=== PATIENT | male | born 1980 | race Caucasian/White ===

== ENCOUNTER 2025-07-10 09:26 | Outpatient (CLI) | payer BC, SELFPAY ==
--- OUTSIDE RECORDS SUMMARY | 2025-05-23 07:18 | XMS_ITS | Encounter Summary ---
Author Organization [place] [address] Care Team Providers Care Storekeeper Helper Name Role Phone No Pcp, Per Patient Primary Care Provider Unavai lable Reason for Referral * Holter Monitor (Routine) - Pending Review Specialty Diagnoses / Procedures Referred By Cleve casas Referred To Contact Radiology Diagnoses Syncope and collapse Procedures EV EVENT MONITOR Ashley Perez MD [address] [place] [address] Phone: tel: fax: Referral ID Status Reason Start Date Expiration Date V isits Requested Visits Authorized [id number] Pending Review 05/24/2025 05/24/2027 1 1 Reason for Visit * Reason Comments Chest Pain Pt sts he has been h aving chest pain since Tuesday. He went to see MD yesterday and she wanted him to come in by ambulance but he refused. + SOB. Pt sts that Tuesday he had episode of sweating and passed out. CPTA: none * Auth/Cert/Inpt (Routine) Specialty Diagnoses / Procedures Referred By Cleve casas Referred To Contact Diagnoses Syncope and collapse Referral ID Status Reason Start Date Expiration Date Visits Re quested Visits Authorized [id number] 1 1 Encounter Details Date Type Department Care Team (Latest Contact Info) Description 05/23/2025 7:18 AM EDT - 05/24/2025 3:27 PM EDT Hospital Encounter EDG 2A OBSERVATION [facility]IT [facility] [place] [address] Pranav Theodore MD [address] [place] [address] Ashley Perez MD [id number] [facility] [place] [id number] Syncope and collapse (Primary Dx); Chest pain, unspecified type Discharge Disposition: Home or Self Care Social History Tobacco Use Types Packs/Day Years Used Date Smoking Tobacco: Never Smokeless Tobacco: Never Alcohol Use Standard Drinks/Week Comments Not Currently 0 (1 standard drink = 0.6 oz pur e alcohol) 12 beers a week [facility] Utilities Answer Date Recorded In the past 12 months has th e electric, gas, oil, or water company threatened to shut off services in your home? No 05/23/2025 Overall Financial Resource Strain (CARDIA) Answe r Date Recorded How hard is it for you to pa y for the very basics like food, housing, medical care, and heating? Not hard at all 05/23/2025 PHQ-2 Answer Date Recorded PHQ-2 Total Score 0 05/23/2025 [facility] - Occupational Stress Questionnaire Answer Date Recorded Do you feel stress - tense, restless, nervous, or anxious, or unable to sleep at night because your mind is troubled all the time - these days? Not at all 05/23/2025 Exercise Vital Sign Answer Date Recorde d On average, how many days pe r week do you engage in moderate to strenuous exercise (like a brisk walk)? 0 days 05/23/2025 On average, how many minutes do you engage in exercise at this level? 0 min 05/23/2025 Hunger Vital Sign Answer Date Recorded Within the past 12 months, y ou worried that your food would run out before you got the money to buy more. Never true 05/23/20 25 Within the past 12 months, t he food you bought just didn't last and you didn't have money to get more. Never true 05/23/2025 [facility] IP Transportation Answer D ate Recorded In the past 12 months, has l ack of reliable transportation kept you from medical appointments, meetings, work or from getting things needed for daily living? No 05/23/2025 Sex and Gender Information Value Date Recorded Sex Assigned at Not on file Legal Sex Male 12:28 AM EDT Gender Identity Not on file Sexual Orientation Not on file documented as of this encounter Last Filed Vital Signs Vital Sign Reading Time Taken Comments Blood Pressure 123/81 05/24/2025 12:11 PM EDT Pulse 65 05/24/2025 1:01 PM EDT Temperature 37.6 C (99.6 F) 05/24/2025 12:11 PM EDT Respiratory Rate 18 05/24/2025 12:11 PM EDT Oxygen Saturation 96% 05/24/2025 12:11 PM EDT Inhaled Oxygen Concentration - - Weight 83 kg (183 lb) 05/24/2025 5:47 AM EDT Height 185.4 cm (6' 1 ) 05/23/2025 2:54 PM EDT Body Mass Index 24.14 05/23/2025 2:54 PM EDT documented in this encounter Functional Status * Alcohol Screening Score Answer Date of Assessment Author 3 05/23/2025 1:00 PM EDT Jeet Caceres RN * Drug Screening Score Answer Date of Assessment Author 0 05/23/2025 1:00 PM EDT Jeet Caceres RN * Question Answer Date of Assessment Author How often do you have a drin k containing alcohol? 3 05/23/2025 1:00 PM EDT Delia Caceres RN How many drinks containing a lcohol do you have on a typical day when you are drinking? 0 05/23/2025 1:00 PM EDT Delia Caceres RN How often do you have six or more drinks on one occasion? 0 05/23/2025 1:00 PM EDT Harry Caceres RN AUDIT-C to Determine Rows 4-10 0 05/23/2025 1:00 PM EDT Delia Caceres RN * Question Answer Date of Assessment Author Little interest or pleasure in doing things 0 05/23/2025 2:32 PM EDT Margaux Montoya RN Feeling down, depressed, or hopeless 0 05/23/2025 2:32 PM EDT Margaux Montoya RN PHQ-2 Total Score 0 05/23/2025 2:32 PM EDT Margaux Montoya RN * PHQ-9 Total Score Answer Date of Assessment Author 0 05/23/2025 2:32 PM EDT Margaux Montoya RN * PHQ-2 Total Score Answer Date of Assessment Author 0 05/23/2025 2:32 PM EDT Margaux Montoya RN * Suicide Severity Rating Answer Date of Assessment Author No Risk 05/23/2025 7:31 AM EDT Barbara Estes RN * Bishop Suicide Severity Rating Scale (Q shift for moderate and high) Question Answer Date of Assessment Author 1. In the past month, have you wished you were or wished you could go to sleep and not wake up? 0 05/23/2025 7:31 AM EDT Barbara Miranda RN 2. In the past month, have you actually had any thoughts of killing yourself? (If no, skip to question 6) 0 05/23/2025 7:31 AM EDT Barbara Miranda RN 6. Have you ever done anything, started to do anything, or prepared to do anything to end your life? 0 05/23/2025 7:31 AM EDT Barbara Stiles RN documented as of this encounter Discharge Summaries * Ashley Perez MD - 05/24/2025 9:16 AM EDT Hospital Medicine Discharge Summary Patient ID: Darrell Sorto Patient's PCP: No Pcp, Per Patient Admit Date: 05/23/2025 Discharge Date: 05/24/2025 Admitting Physician: Ashley Perez MD Discharge Physician: Ashley Perez MD Labs and imaging follow-up needed: Outpatient follow-up for event monitor The patient was seen and examined on day of discharge and this discharge summary is in conjunction with any daily progress note from day of discharge. Reason for Hospitalization: Active Hospital Problems *Syncope and collapse Other chest pain Shortness of breath Primary hypertension Pure hypercholesterolemia Hospital Course: Patient is a 45-year-old male with a past medical history of shortness of breath, hypertension and hyperlipidemia who presents the hospital with syncope and collapse along with some chest pain and shortness of breath. Cardiology was consulted in the emergency department and CT coronary was performed and failed to show any acute blockages. Echocardiogram was ordered and showed EF 55-60%, mild mitral and tricuspid regurg. Patient will discharge home with event monitor. Exam: BP 120/63 (BP Location: Right arm, Patient Position: Semi Fowlers) Pulse 61 Temp 97.8 ??F (36.6??C) (Forehead) Resp 16 Ht 6' 1 (1.854 m) Wt 183 lb (83 kg) SpO2 96% BMI 24.14 kg/m?? Physical Exam Vitals and nursing note reviewed. HENT: Head: Normocephalic. Nose: Nose normal. Eyes: Pupils: Pupils are equal, round, and reactive to light. Cardiovascular: Rate and Rhythm: Normal rate. Pulmonary: Effort: Pulmonary effort is normal. Abdominal: Palpations: Abdomen is soft. Neurological: Mental Status: He is alert. Consults: Treatment Team: Consulting Physician: Ortiz Mkceon MD Significant Diagnostic Studies: EK EKG [address] [facility] [place] [facility] Test Date: 2025-05-23 Pat Name: DARRELL SORTO Department: DEPID Room: 210 Gender: Male Parker: Dangelo : 1980 Requested By: ASHLEY Zhang Order Number: [id number] Reading MD: Uday Lares MD Measurements Intervals [place] Rate: 59 P: 25 NH: 131 QRS: 38 QRSD: 98 T: 53 QT: 405 QTc: 402 Interpretive Statements Normal Sinus Rhythm LVH Electronically Signed On 05-24-2025 07:58:31 EDT by Uday Lares MD CT ANGIOGRAM CORONARY W CONTRAST Final Result Vessel-specific details above. CAD-RADS CLASSIFICATION: CAD-RADS 0. No demonstrated plaque or stenosis. CAD-RADS MODIFIERS: No relevant modifier. CAD-RADS (Coronary Artery Disease-Reporting and Data System) is endorsed by the [place] College of [employer]iology. CAD-RADS grading is applied to vessels 1.5mm diameter and greater only. Link to source document. https://cdn.[employer].com/scct.org/resource/resmgr/cad-rads/scct_jcct_cad-rads.pdf - Note: Radiology results need to be interpreted within a comprehensive clinical context. If you have questions about the radiology report, please contact the office of the ordering clinician. CT ANGIOGRAM PULMONARY W CONTRAST Final Result No acute pulmonary embolism or other acute finding. - Note: Radiology results need to be interpreted within a comprehensive clinical context. If you have questions about the radiology report, please contact the office of the ordering clinician. XR CHEST AP PORTABLE Final Result No acute finding. - Note: Radiology results need to be interpreted within a comprehensive clinical context. If you have questions about the radiology report, please contact the office of the ordering clinician. EK EKG [address] [facility] [place] Test Date: 2025-05-23 Pat Name: DARRELL SORTO Department: DEPID Room: 41 Gender: Male Parker: : 1980 Requested By: [facility] Order Number: [id number] Reading MD: Uday Lares MD Measurements Intervals [place] Rate: 58 P: 13 NH: 131 QRS: 38 QRSD: 100 T: 54 QT: 417 QTc: 410 Interpretive Statements SINUS BRADYCARDIA VOLTAGE CRITERIA FOR LVH Electronically Signed On 05-23-2025 08:31:39 EDT by Uday Lares MD EC ECHOCARDIOGRAM COMPLETE W DOPPLER AND COLOR FLOW MAPPING (Results Pending) Disposition: Home Condition at Discharge: Stable Code Status: Full Code Activity: activity as tolerated Diet: regular diet Discharge Medications: Medication List ASK your doctor about these medications cyclobenzaprine 10 mg Tab Dose: 5 mg Qty: 7 Tab Refills: 0 Commonly known as: FLEXERIL 5 mg, Oral, 3 TIMES DAILY PRN diclofenac sodium 50 mg [place] Dose: 50 mg Qty: 90 Tab Refills: 2 Commonly known as: VOLTAREN 50 mg, Oral, 3 TIMES DAILY WITH MEALS naproxen 500 mg Tab Dose: 500 mg Qty: 14 Tab Refills: 0 Commonly known as: NAPROSYN 500 mg, Oral, EVERY 12 HOURS PRN No future appointments. Time Spent on discharge is more than 30 minutes in the examination, evaluation, counseling and review of medications and discharge plan. Signed: Ashley Perez MD 05/24/2025 documented in this encounter Discharge Disposition Disposition Code Departure Means Destination Comment s Home or Self Care Walk-out Home documented in this encounter Progress Notes * Uday Lares MD - 05/24/2025 9:57 AM EDT Heart & Vascular Progress Note PATIENT: Darrell Curran Cardiology following for: chest pain, syncope Primary Examining Chair Assembler: none Subjective: Patient denies any CP or SOB. Has been up in room. Denies lightheadedness, dizziness. Objective: Vitals: 05/24/25 0919 BP: 121/79 Pulse: 57 Resp: 16 Temp: 97.2 ??F (36.2 ??C) SpO2: 99% I/O 24 hours: Intake/Output Summary (Last 24 hours) at 05/24/2025 0957 Last data filed at 05/24/2025 0557 Gross per 24 hour Intake 600 ml Output -- Net 600 ml Physical Exam: Pt in no distress. Heart - S1, S2 regular rate/rhythm Lungs - clear Chest wall - nontender Abd - soft, NT Extremities- no edema, Neuro - Alert and oriented Mood and affect appropriate Medication: pantoprazole (PROTONIX) 40 mg Intravenous Daily Or pantoprazole 40 mg Oral Daily Labs & Studies: All pertinent labs & radiologic studies for the past 24 hours have been reviewed Telemetry: SR/SB Assessment: CP -hsTn <6 x2 -EKG no acute ischemic finding -CTA pulm with no PE or other acute finding -CCTA with normal coronary arteries Syncope -telemetry reviewed-sinus rhythm and sinus magnus, no high grade blocks, pauses or vent arrhythmias to explain syncope -echo with normal EF and no significant valve disease HTN -BP is controlled -no meds for HTN currently PLAN Await echo. Likely home later today with 30 day EM Further input from Dr Lares . Gabbie Coughlin APRN, Heart and Vascular 05/24/2025 Disposition Perspective - Medically Ready for Discharge: No Anticipated Discharge: possibly later today Discharge when / if: pending echo Seen in follow up CP --No objective ischemica Syncope HTN Echo Result Text IMPRESSION Conclusions * Left ventricular chamber dimension is normal. * Left ventricular function is normal with an estimated ejection fraction of 55-60%. * Left ventricular segmental wall motion is normal. * Right ventricular systolic function is normal. * There is mild mitral valve regurgitation. * There is mild tricuspid valve regurgitation. * Estimated pulmonary artery systolic pressure is 25 mmHg. Cor CTA normal Cors No PE Normal Echo OK to DC home with 20 Day EM Thank you for allowing me to participate in the care of your patients. Please call with any concerns or questions Uday Lares MD [facility] * Marla Cheema MD - 05/23/2025 10:01 PM EDT EKG Interpretation Interpreted by Marla Cheema MD Diagnostic Findings: Intervals reviewed Rhythm: sinus bradycardia Rate: 60 [place]: normal Ectopy: none Conduction: normal ST Segments: no acute change T Waves: no acute change Q Waves: none Clinical Impression: no acute changes Marla Cheema MD Cosigned by Rory Hamilton MD at 05/24/2025 12:22 PM EDT Associated attestation - Rory Hamilton MD - 05/24/2025 12:22 PM EDT I agree with resident physician/house physician management of this situation. I defer to the patient's attending physician for further management of this patient. * Carolina Nuno RN - 05/23/2025 9:56 PM EDT Pt called out with episode of chest pain and left arm pain. VSS. STAT 12 lead EKG completed per protocol. Message sent to ENVIRONMENTAL STUDIES PROFESSOR covering for primary and to residents to read EKG. 05/23/2025 9:58 PM EKG read by residents with no changes. Message also sent to cardiology ENVIRONMENTAL STUDIES PROFESSOR to update. 05/23/2025 10:05 PM No additional episodes of CP overnight. Pt is refusing AM lab draw. 05/24/2025 5:42 AM * Margaux Montoya RN - 05/23/2025 2:38 PM EDT 05/23/25 1433 Discharge Planning Evaluation Completed by CC/SW Yes Echo required prior to discharge? Yes Who you interviewed In person interview with patient Mental Status Alert and oriented Decision Maker Patient Who does pt identify as their caregiver/support person who will be their active partner in the dc planning process Pt identified caregiver/support person for dc planning and requested they not be called Does patient need medical interpreter? No Activities of Daily Living Prior to Admission Independent with ADLS;Independent with Homemaking;Independent with mobility DME Used at Home None Patient's Living Arrangments Prior to Admission? Private Residence Alone Support Systems Family Members Is PCP listed on facesheet correct? No Who does patient report as PCP? Mariana Kumar with [facility] Quality of Support System Good APS/CPS Report Made No Anticipated post-acute care needs Home with OP Follow Up Discussed discharge plans with Patient/Family/Caregiver/Support Person Yes, Discussed with patient and caregiver/support person Discussed discharge plans with Care Team at [place] Yes, with doctor in attendance;Yes, with nurse in attendance Patient's goals for recovery Return to Prior Level of Functioning Actual Discharge Plan 05/23/25-CC INITIAL/FINAL: Chart reviewed. Pt admitted for syncope and collapse, noted echo ordered. Met with pt and family at bedside. Pt is alert and oriented. Pt states he lives alone in a private residence. 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 Denies having or needing HH/DME. PCP: Mariana Kumar with [facility] in [place], [place] Rx: [facility] DMD: Yes. Pt denies any financial concerns for food, medication, or transportation. No d/c needs verbalized or identified. Pt states family will provide transportation at time of d/c. CC available but will sign off. Final Note Referral to SEP Care Management (SEP patients only) N/A Discharge Round Completed Yes Post Acute Form Assign to DC Tech No Post Acute Form Completed No Care Coordination Discharge Ready? Yes Discharge to Home with Support Post Acute Provider Mariana Kumar with [facility] DME at Discharge None DME Assign to DC Tech No DME completed by DC Neofect No Transportation at Discharge Personal vehicle Date Expected 05/24/25 Transportation Assign to DC Tech No Confirmed Discharge Transportation Plan? Yes Transportation setup completed by [email or web address] No PASAR Completed Not Applicable Patient Aware and Agrees with DC Plan Yes Primary Caregiver/Legal Decision Maker aware and agree with Discharge Plan Yes Name of Family member notified family at bedside for d/c plan Does family and/or caregiver verbalize readiness, willingness, and ability to provide or support patient's self-management activities as appropriate? Yes, patient's primary caregiver reports no concerns regarding discharge plan MD Aware of Plan Yes RN Notified of Plan Yes * Ashley Perez MD - 05/23/2025 1:34 PM EDTAssociated Problem(s): Syncope and collapse Recurrent nature Echocardiogram ordered Cardiology consulted Continue telemetry * Ashley Perez MD - 05/23/2025 1:34 PM EDTAssociated Problem(s): Other chest pain Troponins negative CT coronary along with echocardiogram ordered Cardiology consulted * Ashley Perez MD - 05/23/2025 1:34 PM EDTAssociated Problem(s): Shortness of breath Chest x-ray with no acute issue CTPA with no acute pulmonary embolism * Ashley Perez MD - 05/23/2025 1:34 PM EDTAssociated Problem(s): Primary hypertension EKG with voltage criteria for LVH Blood pressure as high as 152/98 Monitor and may need to start medication in outpatient * Ashley Perez MD - 05/23/2025 1:34 PM EDTAssociated Problem(s): Pure hypercholesterolemia LDL slightly elevated at 109 Defer management to cardiology documented in this encounter H&P Notes * Ashley Perez MD - 05/23/2025 1:29 PM EDT Images from the original note were not included. Hospital Medicine History & Physical PCP: No Pcp, Per Patient Date of Admission: 05/23/2025 Date of Service: Pt seen/examined on 05/23/25 and Placed in Observation. Chief Complaint: Shortness of breath and chest pain Admission Diagnosis: Syncope and collapse History Of Present Illness: The patient is a 45 y.o. male who presents to [facility] with shortness of breath along with chest pain. 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 He said he started to get dizzy lightheaded and then passed out. Everything was fine shortly thereafter. Patient also states he has had episodes of chest tightness along with shortness of breath on and off that are occurring at rest and with exertion. States has had minimal energy since the first of the year. He states his normal day is to wake up around 515 and not come home until 1130 or midnight. In the emergency department vitals were unremarkable other than a slight increase blood pressure. Labs were also drawn including troponin which were negative x 1. CT angiogram negative for acute process and EKG showed normal sinus rhythm. Cardiology consulted by emergency department Past Medical History: History reviewed. No pertinent past medical history. Past Surgical History: Past Surgical History: Procedure Laterality Date LEG SURGERY unknown right ORTHOPEDIC SURGERY OTHER SURGICAL HISTORY unknown right fore arm Medications Prior to Admission: Prior to Admission medications Medication Sig Start Date End Date Taking? Authorizing Provider cyclobenzaprine (FLEXERIL) 10 mg Oral Tablet Take 0.5 Tabs by mouth 3 times daily as needed for Muscle spasms (Pain) for up to 14 doses. Patient not taking: Reported on 05/23/2025 09/12/18 Mitch Alaniz MD diclofenac (VOLTAREN) 50 mg Oral Tablet, Delayed Release (E.C.) Take 1 Tab by mouth 3 times daily (with meals). Patient not taking: Reported on 09/12/2018 07/25/17 Timbo Marinelli MD naproxen (NAPROSYN) 500 mg Oral Tablet Take 1 Tab by mouth every 12 hours as needed for Pain for upto 14 doses. Patient not taking: Reported on 05/23/2025 09/12/18 Mitch Alaniz MD Allergies: Patient has no known allergies. Social History: The patient currently lives at home TOBACCO: reports that he has never smoked. He has never used smokeless tobacco. ETOH: reports that he does not currently use alcohol. Family History: Reviewed in detail and negative for DM, Early CAD, Cancer, CVA. Positive as follows: No family history on file. Travel Screening No screening recorded since 05/22/25 0718 Travel History Travel since 04/23/25 No documented travel since 04/23/25 Social History Socioeconomic History Marital status: Single Spouse name: None Number of children: None Years of education: None Highest education level: None Tobacco Use Smoking status: Never Smokeless tobacco: Never Substance and Sexual Activity Alcohol use: Not Currently Comment: 12 beers a week Drug use: No REVIEW OF SYSTEMS: Positive for as noted in the HPI. All other systems reviewed and negative. PHYSICAL EXAM: BP 111/87 Pulse 62 Temp 97.5 ??F (36.4 ??C) (Oral) Resp (!) 9 Ht 6' 1 (1.854 m) Wt 194 lb (88 kg) SpO2 97% BMI 25.60 kg/m?? Physical Exam Vitals and nursing note reviewed. Constitutional: Appearance: Normal appearance. HENT: Head: Normocephalic and atraumatic. Nose: Nose normal. Mouth/Throat: Mouth: Mucous membranes are moist. Pharynx: Oropharynx is clear. Eyes: Pupils: Pupils are equal, round, and reactive to light. Cardiovascular: Rate and Rhythm: Normal rate and regular rhythm. Heart sounds: Normal heart sounds. Pulmonary: Effort: Pulmonary effort is normal. Breath sounds: Normal breath sounds. Abdominal: General: Bowel sounds are normal. Palpations: Abdomen is soft. Musculoskeletal: General: Normal range of motion. Cervical back: Normal range of motion. Skin: General: Skin is warm and dry. Capillary Refill: Capillary refill takes less than 2 seconds. Neurological: General: No focal deficit present. Mental Status: He is alert and oriented to person, place, and time. Mental status is at baseline. Psychiatric: Mood and Affect: Mood normal. CXR: I have reviewed the CXR with the following interpretation: No acute process EKG: I have reviewed the EKG with the following interpretation: Sinus bradycardia CBC Recent Labs 05/23/25 0803 WBC 6.9 HGB 15.6 HCT 46.2 PLT 327 RENAL Recent Labs 05/23/25 0803 NA 137 K 3.8 CL 101 CO2 26 BUN 16 CREATININE 1.20 LFT'S No results for input(s): AST , ALT , BILIDIR , BILITOT , ALKPHOS in the last 72 hours. Invalid input(s): ALB COAG No results for input(s): INR in the last 72 hours. CARDIAC ENZYMES No results for input(s): CKTOTAL , CKMB , CKMBINDEX , TROPONINI in the last 72 hours. PHYSICIANS CERTIFICATION: I certify that Darrell Sorto is expected to be hospitalized for less than 2 midnights based on the following assessment and plan: Assessment & Plan Syncope and collapse Recurrent nature Echocardiogram ordered Cardiology consulted Continue telemetry Other chest pain Troponins negative CT coronary along with echocardiogram ordered Cardiology consulted Shortness of breath Chest x-ray with no acute issue CTPA with no acute pulmonary embolism Primary hypertension EKG with voltage criteria for LVH Blood pressure as high as 152/98 Monitor and may need to start medication in outpatient Pure hypercholesterolemia LDL slightly elevated at 109 Defer management to cardiology DVT Prophylaxis: SCD Diet: NPO: With Meds and Ice Chips Code Status: Full Code PT/OT Eval Status: Not applicable Dispo -observation Ashley Perez MD documented in this encounter Consult Notes * Ortiz Mckeon MD - 05/23/2025 10:43 AM EDTAssociated Order(s): IP CONSULT TO CARDIOLOGY Heart & Vascular Consult Note PATIENT: Darrell LEONARDN: [id number] PCP: No Pcp, Per Patient Primary Examining Chair Assembler: none established as OP I would like to thank Ashley Perez MD for requesting me to see Darrell Sorto for cardiac consultation for chest pain. History provided by: EMR, patient HPI: Darrell Sorto is a 45 y.o. male with limited PMHx who presented to the the ED for evaluation of chestpain. He reports that he has been experiencing chest tightness and SOB, on and off, since the beginning the year. These occur at rest and with exertion. He also reports low energy. He describes the chest pain as a constant nagging but intermittently gets worse. He also intermittently feels shooting pain in his heart . He will have to take a couple deep breaths for it to improve. On Tuesday, was riding his horse when he started to feel sick. He experienced an episode of him feeling extremely hot, nausea, and his chest got tight - he then proceeded to pass out when he was trying to get his saddle off. He does not know how long he was out for. 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 He developed a headache that did not go away on Tuesday so he decided to see his PCP and was sent to the ED for further evaluation. He denies radiation of pain, dizziness/lightheadedness, LE edema, or palpitations. CT pulm did not demonstrate a PE. Initial troponin < 6, < 6. EKG with no acute ischemia. He does have a family history of heart problems. His grandfather and uncles have h/o SD and PCIs. No previous ischemic evaluation or cardiac testing. EKG (05/23/2025) SINUS BRADYCARDIA VOLTAGE CRITERIA FOR LVH Family History No family history on file. Social History Social History Tobacco Use Smoking status: Never Smokeless tobacco: Never Substance Use Topics Alcohol use: Not Currently Comment: 12 beers a week ROS: Denies: Constitutional: fever, chills, weight loss ENT: headaches, LOC, runny nose Cardiovascular: edema, palpitations, orthopnea, or syncope Pulmonary: cough, sputum production, wheezing and hemoptysis. Gastrointestinal: abdominal pain, nausea, vomiting, constipation, diarrhea, hematochezia and melena. Genitourinary: change in bladder habits, burning and hematuria. Integumentary: rash Endocrine:Intolerance to heat or cold, frequent urination/thirst Hematologic/Lymphatic: abnormal bruising Allergic/Immunologic: hives Past Medical History History reviewed. 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 Patient not taking: Reported on 05/23/2025 09/12/18 Not Taking Mitch Alaniz MD diclofenac (VOLTAREN) 50 mg Oral Tablet, Delayed Release (E.C.) Take 1 Tab by mouth 3 times daily (with meals). Patient not taking: Reported on 09/12/2018 07/25/17 Not Taking Timbo Marinelli MD naproxen (NAPROSYN) 500 mg Oral Tablet Take 1 Tab by mouth every 12 hours as needed for Pain for upto 14 doses. Patient not taking: Reported on 05/23/2025 09/12/18 Not Taking Mitch Alaniz MD Inpatient Medications: Past Surgical History Past Surgical History: Procedure Laterality Date LEG SURGERY unknown right ORTHOPEDIC SURGERY OTHER SURGICAL HISTORY unknown right fore arm Allergy No Known Allergies Patient Active Problem List Diagnosis Syncope and collapse BP 136/91 Pulse 54 Temp 97.5 ??F (36.4 ??C) (Oral) Resp (!) 11 Ht 6' 1 (1.854 m) Wt 194 lb (88 kg) SpO2 99% BMI 25.60 kg/m?? I/O 24 hours: No intake or output data in the 24 hours ending 05/23/25 1043 Diagnostic tests The most recent cardiovascular imaging studies available in [facility] EMR were reviewed at time of consultation Exam: Pt lying in bed in no distress. Head: Atraumatic, normocephalic. 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 Mike Nash APRN, [facility] [place] 05/23/25 Disposition Perspective - Medically Ready for Discharge: No Anticipated Discharge: 1-2 days Discharge when / if: further evaluation completed SABRINA note reviewed and agree with above with modifications and changes below. I have personally performed the medical decision making in its entirety. Chest pain with atypical anginal symptoms- non exertional and exertional mild- plan coronary CTA for possible unstable angina. Syncopal events- recurrent, with associated vagal symptoms. Overnight telemetry. OP MCOT. Prediabetes with paucity of other atherosclerotic risk factors. documented in this encounter ED Notes * Pranav Theodore MD - 05/23/2025 6:41 AM EDT Chief Complaint Patient presents with Chest Pain Pt sts he has been having chest pain since Tuesday. He went to see yesterday and she wanted him to come in by ambulance but he refused. + SOB. Pt sts that Tuesday he had episode of sweating and passed out. CPTA: none HPI Chief Complaint - Chest pain since Tuesday - Passing out on Tuesday - Difficulty breathing - Shooting pains in heart - Loss of energy since beginning of year - Nausea (on Tuesday) History of Present Illness Darrell Castaneda is a 45-year-old male presenting to the emergency department with chest pain that started on Tuesday. He has no personal history of heart or lung problems, though both sides of his family havea history of heart problems. The patient reports that on Tuesday, he experienced an episode where he felt extremely hot, nauseous, and his chest got tight, leading to him passing out. He was alone at the time and did not hurt himself. On Tuesday, he had a similar episode with sweating, difficulty breathing, and chest pain but did not lose consciousness. Since then, he has been very sore, experiencing shooting pains in his heart and difficulty breathing deeply every minute or two. Darrell mentions losing breath during normal activities and having no energy since the beginning of the year. The chest pain is described as tight and accompanied by shooting sensations. It is exacerbated by deep breathing. The patient denies fever, head cold, chest cold, vomiting, or changes in bowel movements. He felt nauseous on Tuesday but did not vomit. Darrell also denies any swelling in his legs. The patient's symptoms have significantly impacted his daily functioning, causing him to slow down and experience difficulty with normal activities due to shortness of breath and lack of energy. Medical History - Family history of heart problems on both sides Family History Both sides of the patient's family have a history of heart problems. No specific details about individual family members or age of onset were provided. Review of Systems General: Positive for fatigue, feeling extremely hot, loss of energy. Cardiovascular: Positive for chest pain, chest tightness, shooting pains in heart. Negative for legswelling. Respiratory: Positive for difficulty breathing, shortness of breath with normal activities. Gastrointestinal: Positive for nausea. Negative for vomiting, changes in bowel movements. Neurological: Positive for syncope. Social History - Living Situation: Lives alone History provided by: Patient and medical records Patient History No Known Allergies Home Medications: Prior to Admission medications Medication Sig Start Date End Date Last Dose Authorizing Provider cyclobenzaprine (FLEXERIL) 10 mg Oral Tablet Take 0.5 Tabs by mouth 3 times daily as needed for Muscle spasms (Pain) for up to 14 doses. Patient not taking: Reported on 05/23/2025 09/12/18 Not Taking Mitch Alaniz MD diclofenac (VOLTAREN) 50 mg Oral Tablet, Delayed Release (E.C.) Take 1 Tab by mouth 3 times daily (with meals). Patient not taking: Reported on 09/12/2018 07/25/17 Not Taking Timbo Marinelli MD naproxen (NAPROSYN) 500 mg Oral Tablet Take 1 Tab by mouth every 12 hours as needed for Pain for upto 14 doses. Patient not taking: Reported on 05/23/2025 09/12/18 Not Taking Mitch Alaniz MD History reviewed. No pertinent past medical history. Social History Socioeconomic History Marital status: Single Spouse name: None Number of children: None Years of education: None Highest education level: None Tobacco Use Smoking status: Never Smokeless tobacco: Never Substance and Sexual Activity Alcohol use: Not Currently Comment: 12 beers a week Drug use: No No family history on file. Past Surgical History: Procedure Laterality Date LEG SURGERY unknown right ORTHOPEDIC SURGERY OTHER SURGICAL HISTORY unknown right fore arm Review of Systems Respiratory: Positive for shortness of breath. Cardiovascular: Positive for chest pain. Neurological: Positive for loss of consciousness. All other systems reviewed and are negative. Physical Exam Vitals: 05/23/25 0930 BP: Pulse: 61 Resp: 17 Temp: SpO2: 97% Vitals: 05/23/25 0800 05/23/25 0830 05/23/25 0900 05/23/25 0930 BP: 127/85 132/91 (!) 144/112 BP Location: Patient Position: Pulse: 57 60 63 61 Resp: 17 (!) 11 12 17 Temp: TempSrc: SpO2: 96% 95% 97% Weight: Height: Physical Exam Vitals and nursing note reviewed. Constitutional: General: He is not in acute distress. Appearance: He is not ill-appearing or toxic-appearing. HENT: Head: Normocephalic and atraumatic. Eyes: Extraocular Movements: Extraocular movements intact. Pupils: Pupils are equal, round, and reactive to light. Cardiovascular: Rate and Rhythm: Normal rate. Heart sounds: Normal heart sounds. Pulmonary: Effort: Pulmonary effort is normal. Breath sounds: Normal breath sounds. Abdominal: General: Bowel sounds are normal. Palpations: Abdomen is soft. Tenderness: There is no abdominal tenderness. Musculoskeletal: Right lower leg: No tenderness. No edema. Left lower leg: No tenderness. No edema. Skin: General: Skin is warm and dry. Neurological: General: No focal deficit present. Mental Status: He is alert and oriented to person, place, and time. Psychiatric: Mood and Affect: Mood normal. Behavior: Behavior normal. Procedures Procedures Radiology/EKG/Labs: Results for orders placed or performed during the hospital encounter of 05/23/25 XR CHEST AP PORTABLE Narrative XR CHEST AP PORTABLE, 05/23/2025 7:51 AM CLINICAL HISTORY: Chest pain and shortness of breath COMPARISON: 09/12/2018 PROCEDURE COMMENTS: AP portable technique. FINDINGS: Support devices: No visible support devices. Heart and mediastinal contours within normal limits for technique. No active failure, pneumonia, or visible effusion. No visible pneumothorax. Impression No acute finding. - Note: Radiology results need to be interpreted within a comprehensive clinical context. If you have questions about the radiology report, please contact the office of the ordering clinician. CT ANGIOGRAM PULMONARY W CONTRAST Narrative CT PULMONARY ANGIOGRAM, 05/23/2025 9:19 AM CLINICAL HISTORY: -Chest Pain -cp, syncope. COMPARISON: Same day chest radiograph. TECHNIQUE: PE protocol CT angiogram of the chest using Isovue 370 IV contrast as recorded in [employer]. 2-D multiplanar reconstructions and 3-D MIP reconstructions reviewed. Dose 1 : CT DLP Total : 231.61 mGycm DLP Spiral Max : 228.29 mGycm Maximum CTDI Vol : 6.55 mGy FINDINGS: Adequate visualization of the pulmonary arteries to the segmental/subsegmental level. No acute pulmonary embolism. No aortic arch aneurysm. No active failure, pneumonia, effusion, or pneumothorax. No suspicious pulmonary nodule or mediastinal mass lesion. Calcified left upper lobe pulmonary granuloma. No lymphadenopathy. Calcified left hilar lymph nodes compatible sequela chronic granulomatous inflammation. Coronary artery calcification: None. No suspicious findings within the imaged upper abdomen. Small splenule is present. Impression No acute pulmonary embolism or other acute finding. - Note: Radiology results need to be interpreted within a comprehensive clinical context. If you have questions about the radiology report, please contact the office of the ordering clinician. CBC Result Value Ref Range WBC 6.9 3.7 - 10.3 x10(3)/mcL RBC 5.18 4.60 - 6.10 x10(6)/mcL Hgb 15.6 13.7 - 17.5 g/dL Hct 46.2 40.0 - 51.0 % MCV 89.2 80.0 - 100.0 fL MCH 30.1 26.0 - 34.0 pg MCHC 33.8 30.7 - 35.5 g/dL RDW 12.1 <=14.9 % Platelet 327 155 - 369 x10(3)/mcL MPV 9.2 8.8 - 12.5 fL BASIC METABOLIC PANEL Result Value Ref Range Sodium 137 136 - 145 mmol/L Potassium 3.8 3.5 - 5.0 mmol/L Chloride 101 98 - 107 mmol/L Total CO2 26 22 - 29 mmol/L Anion Gap 10 7 - 16 mmol/L Calcium 9.5 8.6 - 10.4 mg/dL Glucose Lvl 96 70 - 99 mg/dL BUN 16 6 - 20 mg/dL Creatinine 1.20 0.67 - 1.30 mg/dL eGFR (CKD-EPIcr 2020) 77 >=60 mL/min/1.73 m2 TROPONIN-T HIGH SENSITIVITY BASELINE W/ REFLEX Result Value Ref Range [id number] <6 <22 ng/L Narrative Ingestion of raven doses of biotin (>5 mg/day) taken within 8 hours of drawing blood sample can interfere with this immunoassay test. EK EKG [address] [place] Test Date: 2025-05-23 Pat Name: DARRELL SORTO Department: DEPID Room: 41 Gender: Male Parker: : 1980 Requested By: [facility] Order Number: [id number] Reading MD: Uday Lares MD Measurements Intervals [place] Rate: 58 P: 13 NH: 131 QRS: 38 QRSD: 100 T: 54 QT: 417 QTc: 410 Interpretive Statements SINUS BRADYCARDIA VOLTAGE CRITERIA FOR LVH Electronically Signed On 05-23-2025 08:31:39 EDT by Uday Lares MD Medical Decision Making Medical Decision Making Darrell Castaneda is a 45-year-old male with no personal history of heart or lung problems presenting with chest pain, syncope, and dyspnea starting 3 days ago. The patient's presentation with chest pain, syncope, and dyspnea is concerning for cardiac pathology, despite normal initial workup. The normal CBC,basic metabolic profile, and troponin levels, along with a negative CT angiogram, make acute coronary syndrome, pulmonary embolism, and other acute intrathoracic processes less likely. However, the patient's symptoms, including passing out, new-onset dyspnea with exertion, and persistent chest pain, warrant further investigation. The family history of heart problems increases the suspicion for cardiac etiology. While the initial tests are reassuring, they do not completely rule out cardiac issues such as partial coronary artery blockages that may cause symptoms during exertion. Given the diagnostic uncertainty and the potential for serious underlying cardiac pathology, cardiology consultation has been requested for further evaluation and management. Problem-Based Assessment and Plan Chest pain with syncope Assessment: 45-year-old male presenting with chest pain and syncope. Patient experienced an episodeon Tuesday with chest tightness, nausea, feeling hot, and loss of consciousness. A similar episode occurred on Tuesday with sweating, dyspnea, and chest pain without syncope. Patient reports ongoing soreness, shooting pains in the heart, and difficulty breathing deeply. He has been experiencing dyspnea on exertion and fatigue since the beginning of the year. Family history is significant for heartproblems on both sides. Initial workup including CBC, basic metabolic profile, troponin levels, EKG, chest x-ray, and CT angiogram of the chest were all within normal limits. Despite negative test results, symptoms remain concerning and warrant further investigation. Plan: - Admit to hospital for further cardiac evaluation - Consult cardiology for additional testing and management Results of diagnostic testing and plan of care communicated to hospitalist who agrees to the admission. Results of diagnostic testing and plan of care discussed with patient who is in agreement. Patient admitted in stable condition. Further diagnostic testing and treatment will be at the discretion of the admitting provider. Problems Addressed: Chest pain, unspecified type: complicated acute illness or injury Syncope and collapse: complicated acute illness or injury Amount and/or Complexity of Data Reviewed Labs: ordered. Decision-making details documented in ED Course. Radiology: ordered and independent interpretation performed. Decision-making details documented in ED Course. ECG/medicine tests: ordered and independent interpretation performed. Decision- making details documented in ED Course. Risk Prescription drug management. Decision regarding hospitalization. Medications sodium chloride 0.9% syringe 5 mL (has no administration in time range) sodium chloride 0.9% IV line flush 50 mL (has no administration in time range) iopamidoL (ISOVUE-370) 370 mg iodine /mL (76 %) injection (LOW) 75 mL (75 mL Intravenous Given 05/23/25 0920) sodium chloride 0.9% syringe 10 mL (10 mL Intravenous Given 05/23/25 0920) ED Current Prescriptions None ED Course as of 05/23/25 09 Pranav Theodore Documentation Sasha May 23, 2025 9630 EKG Interpretation Independently interpreted by Dr. Theodore Rhythm: Sinus bradycardia Rate: 58 [place]: normal Ectopy: none Conduction: normal ST Segments: no acute change T Waves: no acute change Q Waves: none Clinical Impression: Sinus bradycardia, rate 58, no acute ST segment elevation or depression, no evidence of acute ischemia or infarction, prominent T waves noted All COVID-19 safety protocols followed during patient interaction. ED Clinical Impression: Final diagnoses: Syncope and collapse (Primary) Chest pain, unspecified type Condition at Discharge/Transfer from Department: Stable If a controlled substance was prescribed then a [facility] report was reviewed prior to the prescribing. Pranav Theodore MD 05/23/25 0951 documented in this encounter Miscellaneous Notes * Utilization Review Notes - Viviana Peralta RN - 05/24/2025 2:48 PM EDT ADMIT TO OBSERVATION 05/23 OBS ORDER ON CHART ADMIT TO TELEMETRY UNIT SYNCOPE AND COLLAPSE ECHO DC ORDER ON CHART * Utilization Review Notes - Viviana Peralta RN - 05/24/2025 9:48 AM EDT ADMIT TO OBSERVATION 05/23 OBS ORDER ON CHART ADMIT TO TELEMETRY UNIT SYNCOPE AND COLLAPSE ECHO * Utilization Review Notes - Gogo Lau RN - 05/23/2025 12:59 PM EDT Pt was admitted as observation 05/23* . Observation order on chart. Admitted to Telemetry Unit for Syncope and collapse LABS: Trop Neg MEDS: Valium PO x 1 ORDERS: NPO ECHO Pending Cardiac CT Angingram Pending NOTES: Per Cardiology Note 05/23/2025: Plan: - CCTA ordered - ECHO ordered - Check lipid panel + A1c - EV monitor at time of DC - Further recommendations to follow testing DC PLAN: CC following documented in this encounter Plan of Treatment Pending Results Name Type Priority Associated Diagnoses Date /Time ECG AND WAVEFORMS - TELEMETRY Point of Care Testing Routine 05/23/2025 3:08 PM EDT ECG AND WAVEFORMS - TELEMETRY Point of Care Testing Routine 05/24/2025 7:12 AM EDT Scheduled Orders Name Type Priority Associated Diagnoses Orde r Schedule EV EVENT MONITOR Imaging Cardiology Routine Syncope and collapse 1 Occurrences starting 05/24/2025 until 05/24/2027 documented as of this encounter Goals Goal Patient Goal Type Associated Problems Recent Progress Patient-Stated? Author Maintain a healthy diet, exercise regularly and maintain an ideal body weight Tina Li RMA documented as of this encounter Procedures Procedure Name Priority Date/Time Associated Diagnosis Comments EV EVENT MONITOR Routine 05/24/2025 2:54 PM EDT EC ECHOCARDIOGRAM COMPLETE W DOPPLER AND COLOR FLOW MAPPING Routine 05/24/2025 11:52 AM EDT SCANNED EKG 05/24/2025 11:35 AM EDT ECG AND WAVEFORMS - TELEMETRY Routine 05/24/2025 7:12 AM EDT EK EKG 12 LEAD XOCHITL 05/23/2025 9:51 PM EDT ECG AND WAVEFORMS - TELEMETRY Routine 05/23/2025 7:03 PM EDT ECG AND WAVEFORMS - TELEMETRY Routine 05/23/2025 7:03 PM EDT ECG AND WAVEFORMS - TELEMETRY Routine 05/23/2025 3:[address] ANGIOGRAM CORONARY W CONTRAST STAT 05/23/2025 1:26 PM EDT IP CONSULT TO CARDIOLOGY Routine 05/23/2025 11:39 AM EDT Procedure Note - Ortiz Mckeon MD - 05/23/2025 10:43 AM EDTThis note is in progress. 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 History provided by: EMR, patient HPI: Darrell Sorto is a 45 y.o. male with limited PMHx who presented to the theED for evaluation of chest pain. He reports that he has been experiencingchest tightness and SOB, on and off, since the beginning the year. Theseoccur at rest and with exertion. He also reports low energy. He describesthe chest pain as a constant nagging but intermittently gets worse. Healso intermittently feels shooting pain in his heart . He will have totake a couple deep breaths for it to improve. On Tuesday, was riding his horse when he started to feel sick. Heexperienced an episode of him feeling extremely hot, nausea, and his chestgot tight - he then proceeded to pass out when he was trying to get hissaddle off. He does not know how long he was out for. 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 He developed aheadache that did not go away on Tuesday so he decided to see his PCPand was sent to the ED for further evaluation. He denies radiation ofpain, dizziness/lightheadedness, LE edema, or palpitations. CT pulm did not demonstrate a PE. Initial troponin < 6, < 6. EKG with noacute ischemia. He does have a family history of heart problems. His grandfather anduncles have h/o SD and PCIs. No previous ischemic evaluation or cardiac testing. EKG (05/23/2025) SINUS BRADYCARDIA VOLTAGE CRITERIA FOR LVH Family History No family history on file. Social History Social History Tobacco Use Smoking status: Never Smokeless tobacco: Never Substance Use Topics Alcohol use: Not Currently Comment: 12 beers a week ROS: Denies: Constitutional: fever, chills, weight loss ENT: headaches, LOC, runny nose Cardiovascular: edema, palpitations, orthopnea, or syncope Pulmonary: cough, sputum production, wheezing and hemoptysis. Gastrointestinal: abdominal pain, nausea, vomiting, constipation,diarrhea, hematochezia and melena. Genitourinary: change in bladder habits, burning and hematuria. Integumentary: rash Endocrine:Intolerance to heat or cold, frequent urination/thirst Hematologic/Lymphatic: abnormal bruising Allergic/Immunologic: hives Past Medical History History reviewed. 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 Patient not taking: Reported on 05/23/2025 09/12/18 Not Taking Mitch Alaniz MD diclofenac (VOLTAREN) 50 mg Oral Tablet, Delayed Release (E.C.) Take 1 Tabby mouth 3 times daily (with meals). Patient not taking: Reported on 09/12/2018 07/25/17 Not Taking Timbo Marinelli MD naproxen (NAPROSYN) 500 mg Oral Tablet Take 1 Tab by mouth every 12 hoursas needed for Pain for up to 14 doses. Patient not taking: Reported on 05/23/2025 09/12/18 Not Taking Mitch Alaniz MD Inpatient Medications: Past Surgical History Past Surgical History: Procedure Laterality Date LEG SURGERY unknown right ORTHOPEDIC SURGERY OTHER SURGICAL HISTORY unknown right fore arm Allergy No Known Allergies Patient Active Problem List Diagnosis Syncope and collapse BP 136/91 Pulse 54 Temp 97.5 F (36.4 C) (Oral) Resp (!) 11 Ht 6' 1 (1.854 m) Wt 194 lb (88 kg) SpO2 99% BMI 25.60 kg/m I/O 24 hours: No intake or output data in the 24 hours ending 05/23/25 1043 Diagnostic tests The most recent cardiovascular imaging studies available in [place] Hospital EMR werereviewed at time of consultation Exam: Pt lying in bed in no distress. Head: Atraumatic, normocephalic. 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 Mike Nash APRN, [facility] [place] 05/23/25 Disposition Perspective - Medically Ready for Discharge: No Anticipated Discharge: 1-2 days Discharge when / if: further evaluation completed SABRINA note reviewed and agree with above with modifications and changesbelow. I have personally performed the medical decision making in its entirety. Chest pain with atypical anginal symptoms- non exertional and exertionalmild- plan coronary CTA for possible unstable angina. Syncopal events- recurrent, with associated vagal symptoms. Overnighttelemetry. OP MCOT. Prediabetes with paucity of other atherosclerotic risk factors. HEMOGLOBIN A1C Routine 05/23/2025 11:14 AM EDT LIPID SCREEN Routine 05/23/2025 11:14 AM EDT TROPONIN-T HIGH SENSITIVITY 2HR Timed 05/23/2025 10:18 AM EDT ADMIT Routine 05/23/2025 9:[address] ANGIOGRAM PULMONARY W CONTRAST STAT 05/23/2025 9:19 AM EDT TROPONIN-T HIGH SENSITIVITY BASELINE W/ REFLEX STAT 05/23/2025 8:03 AM EDT CBC STAT 05/23/2025 8:03 AM EDT BASIC METABOLIC PANEL STAT 05/23/2025 8:03 AM EDT XR CHEST AP PORTABLE XOCHITL 05/23/2025 7:51 AM EDT EK EKG 12 LEAD STAT 05/23/2025 6:44 AM EDT SALINE LOCK IV STAT 05/23/2025 6:44 AM EDT documented in this encounter Results * EV EVENT MONITOR (05/24/2025 2:54 PM EDT) Anatomical Region Laterality Modality Holter/Event Mon itoring 06/24/2025 8:22 AM EDT Impressions 06/24/2025 12:[address] [facility] Test Date: 2025-06-24 Pat Name: DARRELL SORTO Department: DEPID Room: 2104 Gender: Male Parker: : 1980 Requested By: [employer] Order Number: [id number] Reading MD: Ortiz Mckeon MD Interpretive Statements The patient's monitoring period was 05/24/2025 - 06/22/2025. Baseline sample showed Sinus Rhythm with a heart rate of 71.5 bpm. There were 0 critical, 0 serious, and 5 stable events that occurred. Sinus Rhythm Two runs of non sustained ventricular tachycardia. Electronically Signed On 06-24-2025 12:15:42 EDT by Ortiz Mckeon MD Narrative Procedure Note Ortiz Mckeon MD - 06/24/[address] [facility] Test Date: 2025-06-24 Pat Name: DARRELL SORTO Department: DEPID Room: 2104 Gender: Male Parker: : 1980 Requested By: [employer] Order Number: [id number] Reading MD: Ortiz Mckeon MD Interpretive Statements The patient's monitoring period was 05/24/2025 - 06/22/2025. Baseline sample showed Sinus Rhythm with a heart rate of 71.5 bpm. There were 0 critical, 0 serious, and 5 stable events that occurred. Sinus Rhythm Two runs of non sustained ventricular tachycardia. Electronically Signed On 06-24-2025 12:15:42 EDT by Ortiz Mckeon MD Gabbie Coughlin [employer] IMG HOLTER MONITOR ORDERABL ES Final Result * EC ECHOCARDIOGRAM COMPLETE W DOPPLER AND COLOR FLOW MAPPING (05/24/2025 11:52 AM EDT) LV DIASTOLIC PLAX 5.05 cm PYRAMIS Ejection Fraction 55-60% PYRAMIS MITRAL REGURGITATION mild PYRAMIS AORTIC STENOSIS no PYRAMIS Anatomical Region Laterality Modality Electrocardiogra phy 05/24/2025 11:0 5 AM EDT Impressions 05/24/2025 12:47 PM EDT Conclusions * Left ventricular chamber dimension is normal. * Left ventricular function is normal with an estimated ejection fraction of 55-60%. * Left ventricular segmental wall motion is normal. * Right ventricular systolic function is normal. * There is mild mitral valve regurgitation. * There is mild tricuspid valve regurgitation. * Estimated pulmonary artery systolic pressure is 25 mmHg. Narrative Procedure Note Uday Lares MD - 05/24/2025 IMPRESSION Conclusions * Left ventricular chamber dimension is normal. * Left ventricular function is normal with an estimated ejectionfraction of 55-60%. * Left ventricular segmental wall motion is normal. * Right ventricular systolic function is normal. * There is mild mitral valve regurgitation. * There is mild tricuspid valve regurgitation. * Estimated pulmonary artery systolic pressure is 25 mmHg. us Ashley Perez MD IMG ECHO ORDERABLES Final Result * SCANNED EKG (05/24/2025 11:35 AM EDT) Anatomical Region Laterality Modality Other 05/24/2025 11:3 5 AM EDT us Unknown Provider IMG ECG ORDERABLES Final Result * EK EKG 12 LEAD (05/23/2025 9:51 PM EDT) Anatomical Region Laterality Modality Electrocardiogra phy 05/23/2025 9:53 PM EDT Impressions 05/24/2025 7:58 AM EDT [facility] Test Date: 2025-05-23 Pat Name: DARRELL SORTO Department: DEPID Room: [facility] Gender: Male Parker: Dangelo : 1980 Requested By: ASHLEY Zhang Order Number: [id number] Reading MD: Uday Lares MD Measurements Intervals [place] Rate: 59 P: 25 NH: 131 QRS: 38 QRSD: 98 T: 53 QT: 405 QTc: 402 Interpretive Statements Normal Sinus Rhythm LVH Electronically Signed On 05-24-2025 07:58:31 EDT by Uday Lares MD Narrative Procedure Note Uday Lares MD - 05/24/[address] [facility] Test Date: 2025-05-23 Pat Name: DARRELL SORTO Department: DEPID Room: 2105 Gender: Male Parker: Dangelo : 1980 Requested By: ASHLEY Zhang Order Number: [id number] Reading MD: Uday Lares MD Measurements Intervals [place] Rate: 59 P: 25 NH: 131 QRS: 38 QRSD: 98 T: 53 QT: 405 QTc: 402 Interpretive Statements Normal Sinus Rhythm LVH Electronically Signed On 05-24-2025 07:58:31 EDT by Uday Lares MD us Ashley Perez MD IMG ECG ORDERABLES Final Result * ECG AND WAVEFORMS - TELEMETRY (05/23/2025 7:03 PM EDT) ECG INTERPRET R [facility] 05/23/2025 7:03 PM EDT Narrative [facility] - 05/23/2025 8:21 PM EDT ROUTINE NH 0.14 QRS 0.11 RR 1.03 QT 0.41 QTc 0.40 See Clinical Report link for waveform capture us Unknown Provider POINT OF CARE CARDIOLOGY Final Result [facility] [address] [place] [address] * ECG AND WAVEFORMS - TELEMETRY (05/23/2025 7:03 PM EDT) ECG INTERPRET NSR [facility] 05/23/2025 7:03 PM EDT Narrative [facility] - 05/23/2025 8:21 PM EDT ROUTINE NH 0.14 QRS 0.11 RR 1.03 QT 0.41 QTc 0.40 See Clinical Report link for waveform capture us Unknown Provider POINT OF CARE CARDIOLOGY Final Result [facility] [place] [address] * CT ANGIOGRAM CORONARY W CONTRAST (05/23/2025 1:26 PM EDT) Anatomical Region Laterality Modality Chest Computed Tomogra phy 05/23/2025 1:26 PM EDT Impressions 05/23/2025 2:57 PM EDT Vessel-specific details above. CAD-RADS CLASSIFICATION: CAD-RADS 0. No demonstrated plaque or stenosis. CAD-RADS MODIFIERS: No relevant modifier. CAD-RADS (Coronary Artery Disease-Reporting and Data System) is endorsed by the [place] College of Cardiology. CAD-RADS grading is applied to vessels 1.5mm diameter and greater only. Link to source document. https://cdn.Placements.io.com/scct.org/resource/resmgr/cad-rads/scct_jcct_cad-rads.pdf - Note: Radiology results need to be interpreted within a comprehensive clinical context. If you have questions about the radiology report, please contact the office of the ordering clinician. Narrative 05/23/2025 2:[address] CORONARY ANGIOGRAM, 05/23/2025 1:26 PM CLINICAL HISTORY: -chest pain. COMPARISON: None. PROCEDURE COMMENTS: Heart rate control using Metoprolol as documented in EPIC. Sublingual NTG given if not contraindicated as recorded in EPIC. Isovue 370 IV contrast given as recorded in EPIC. CCTA prospective ECG-gated technique for coronary artery visualization. Interactive 3-D postprocessing done by the reviewing physician on a [email or web address] workstation, with one or more of the following: Maximum intensity projections (MIPS), Shaded surface rendering, and/or Volume rendering. [facility] images archived to PACS. Dose 1 : CT DLP Total : 855.95 mGycm Maximum CTDI Vol : 56.68 mGy FINDINGS: TECHNICAL QUALITY: Good with minor artifacts. CORONARY ORIGINS: Normal position. PDA arises from the RIGHT coronary circulation. LEFT MAIN: Bifurcates into LAD and Circumflex branches. Normal. No vessel narrowing. LAD (+ ramus intermedius if present): Normal. No vessel narrowing. CIRCUMFLEX: Normal. No vessel narrowing. RCA: Normal. No vessel narrowing. CARDIAC VALVES: No significant thickening or calcifications of the aortic or mitral valves. ATRIAL APPENDAGE: No thrombus. PERICARDIUM: Normal thickness. No effusion. EXTRACARDIAC: Visible lung parenchyma without mass or consolidation. No mediastinal mass lesion. Normal sized lymph nodes noted. Procedure Note Khalif Boyd MD - 05/23/2025 CT CORONARY ANGIOGRAM, 05/23/2025 1:26 PM CLINICAL HISTORY: -chest pain. COMPARISON: None. PROCEDURE COMMENTS: Heart rate control using Metoprolol as documented inEPIC. Sublingual NTG given if not contraindicated as recorded in EPIC. [id number] IV contrast given as recorded in EPIC. CCTA prospective ECG-gated techniquefor coronary artery visualization. Interactive 3-D postprocessing done bythe reviewing physician on a [email or web address] workstation, with one or more of thefollowing: Maximum intensity projections (MIPS), Shaded surface rendering, and/orVolume rendering. [facility] images archived to PACS. Dose 1 : CT DLP Total : 855.95 mGycm Maximum CTDI Vol : 56.68 mGy FINDINGS: TECHNICAL QUALITY: Good with minor artifacts. CORONARY ORIGINS: Normal position. PDA arises from the RIGHT coronary circulation. LEFT MAIN: Bifurcates into LAD and Circumflex branches. Normal. Novessel narrowing. LAD (+ ramus intermedius if present): Normal. No vessel narrowing. CIRCUMFLEX: Normal. No vessel narrowing. RCA: Normal. No vessel narrowing. CARDIAC VALVES: No significant thickening or calcifications of the aorticor mitral valves. ATRIAL APPENDAGE: No thrombus. PERICARDIUM: Normal thickness. No effusion. EXTRACARDIAC: Visible lung parenchyma without mass or consolidation. No mediastinal mass lesion. Normal sized lymph nodes noted. IMPRESSION: Vessel-specific details above. CAD-RADS CLASSIFICATION: CAD-RADS 0. No demonstrated plaque or stenosis. CAD-RADS MODIFIERS: No relevant modifier. CAD-RADS (Coronary Artery Disease-Reporting and Data System) is endorsedby the [place] College of Cardiology. CAD-RADS grading is applied to vessels1.5mm diameter and greater only. Link to source document. https://cdn.Placements.io.com/scct.org/resource/resmgr/cad-rads/scct_jcct_cad-rads.pdf - Note: Radiology results need to be interpreted within a comprehensiveclinical context. If you have questions about the radiology report, please contactthe office of the ordering clinician. Brenda Nash [employer]MER IMG CT ORDERABLES Final Res ult * (ABNORMAL) HEMOGLOBIN A1C (05/23/2025 11:14 AM EDT) Hgb A1C 5.7(H) 4.2 - 5.6 % 05/23/2025 12:33 PM EDT [facility] Est. Avg Glucose 117 mg/dL 05/23/2025 12:33 PM EDT [facility] Blood VENOUS BLOOD / Unknown Venipuncture / Unknown 05/23/2025 11:14 AM EDT 05/23/2025 11:16 AM EDT Narrative [facility] - 05/23/2025 12:33 PM EDT REFERENCE RANGE: Normal: 4.0-5.6% Pre-diabetes: 5.7-6.4% Provisional diagnosis of diabetes: >6.4% Hgb F>10% and anything which shortens red cell survival, such as hemolytic anemia, or unstable hemoglobin variants such as HbSS, HbSC, or HbCC, will lower the HbA1c value associated with a given level of glycemic control. Brenda Nash [employer] CHEMISTRY ORDERABLES Final Result [facility] [address] [facility] [address] , [place] [address] * (ABNORMAL) LIPID SCREEN (05/23/2025 11:14 AM EDT) Cholesterol 175 <200 mg/dL 05/23/2025 11:58 AM EDT [facility] Comment: < 200 Desirable 200 - 239 Borderline High >= 240 High Triglyceride 54 <150 mg/dL 05/23/2025 11:58 AM EDT [facility] Comment: < 150 Normal 150 - 199 Borderline High 200 - 499 High >= 500 Very High HDL 55 >=40 mg/dL 05/23/2025 11:58 AM EDT [facility] Comment: > 60 Optimal 40 - 60 Acceptable < 40 Low LDL Calculated 109(H) <100 mg/dL 05/23/2025 11:58 AM EDT [facility] [employer] Comment: < 100 Optimal 100 - 129 Near or above optimal 130 - 159 Borderline High 160 - 189 High >= 190 Very High The National Institutes of Health (NIH) equation is used for all lipid panels that report calculated LDL (LDL-C). Non-HDL-C Calculated 120 <=129 mg/dL 05/23/2025 11:58 AM EDT [facility] Comment: <130 Desirable 130-159 Above Desirable 160-189 Borderline High 190-219 High >= 220 Very High Fasting Specimen? Yes None 025 11:58 AM EDT [facility] Blood VENOUS BLOOD / Unknown Venipuncture / Unknown 05/23/2025 11:14 AM EDT 05/23/2025 11:16 AM EDT Brenda Nash [employer] CHEMISTRY ORDERABLES Final Result [facility] [employer] [address] [facility] , [facility] [place] [address] * TROPONIN-T HIGH SENSITIVITY 2HR (05/23/2025 10:18 AM EDT) at-dFbmuxhce-Q 2HR <6 <22 ng/L 05/23/2025 10:44 AM EDT [facility] hs-cTnT 2Hr Delta from Baseline 05/23/2025 10:44 AM EDT [facility] Comment:Unable to calculate, result is outside instrument's measuring range. Blood VENOUS BLOOD / Unknown Venipuncture / Unknown 05/23/2025 10:18 AM EDT 05/23/2025 10:26 AM EDT Narrative [facility] - 05/23/2025 10:44 AM EDT Ingestion of raven doses of biotin (>5 mg/day) taken within 8 hours of drawing blood sample can interfere with this immunoassay test. us Pranav Theodore MD CHEMISTRY ORDERABLES Final Re sult [facility] [address] [place] [id number] * CT ANGIOGRAM PULMONARY W CONTRAST (05/23/2025 9:19 AM EDT) Anatomical Region Laterality Modality Chest Computed Tomogra phy 05/23/2025 9:19 AM EDT Impressions 05/23/2025 9:29 AM EDT No acute pulmonary embolism or other acute finding. - Note: Radiology results need to be interpreted within a comprehensive clinical context. If you have questions about the radiology report, please contact the office of the ordering clinician. Narrative 05/23/2025 9:[address] PULMONARY ANGIOGRAM, 05/23/2025 9:19 AM CLINICAL HISTORY: -Chest Pain -cp, syncope. COMPARISON: Same day chest radiograph. TECHNIQUE: PE protocol CT angiogram of the chest using Isovue 370 IV contrast as recorded in [employer]. 2-D multiplanar reconstructions and 3-D MIP reconstructions reviewed. Dose 1 : CT DLP Total : 231.61 mGycm DLP Spiral Max : 228.29 mGycm Maximum CTDI Vol : 6.55 mGy FINDINGS: Adequate visualization of the pulmonary arteries to the segmental/subsegmental level. No acute pulmonary embolism. No aortic arch aneurysm. No active failure, pneumonia, effusion, or pneumothorax. No suspicious pulmonary nodule or mediastinal mass lesion. Calcified left upper lobe pulmonary granuloma. No lymphadenopathy. Calcified left hilar lymph nodes compatible sequela chronic granulomatous inflammation. Coronary artery calcification: None. No suspicious findings within the imaged upper abdomen. Small splenule is present. Procedure Note Kelechi Jett MD - 05/23/2025 CT PULMONARY ANGIOGRAM, 05/23/2025 9:19 AM CLINICAL HISTORY: -Chest Pain -cp, syncope. COMPARISON: Same day chest radiograph. TECHNIQUE: PE protocol CT angiogram of the chest using Isovue 370 IVcontrast as recorded in [employer]. 2-D multiplanar reconstructions and 3-D MIP reconstructions reviewed. Dose 1 : CT DLP Total : 231.61 mGycm DLP Spiral Max : 228.29 mGycm Maximum CTDI Vol : 6.55 mGy FINDINGS: Adequate visualization of the pulmonary arteries to the segmental/subsegmental level. No acute pulmonary embolism. No aortic arch aneurysm. No active failure, pneumonia, effusion, or pneumothorax. No suspicious pulmonary nodule or mediastinal mass lesion. Calcified leftupper lobe pulmonary granuloma. No lymphadenopathy. Calcified left hilar lymphnodes compatible sequela chronic granulomatous inflammation. Coronary artery calcification: None. No suspicious findings within the imaged upper abdomen. Small splenuleis present. IMPRESSION: No acute pulmonary embolism or other acute finding. - Note: Radiology results need to be interpreted within a comprehensiveclinical context. If you have questions about the radiology report, please contactthe office of the ordering clinician. Pranav Theodore MD IMG CT ORDERABLES Final Resul t * TROPONIN-T HIGH SENSITIVITY BASELINE W/ REFLEX (05/23/2025 8:03 AM EDT) Pathologist [facility] th-sKebgnswx-W <6 <22 ng/L 05/23/2025 8:25 AM EDT [facility] Blood VENOUS BLOOD / Unknown Venipuncture / Unknown 05/23/2025 8:03 AM EDT 05/23/2025 8:06 AM EDT Narrative [facility] - 05/23/2025 8:25 AM EDT Ingestion of raven doses of biotin (>5 mg/day) taken within 8 hours of drawing blood sample can interfere with this immunoassay test. Pranav Theodore MD CHEMISTRY ORDERABLES Final Re sult [facility] [address] [place] [address] * BASIC METABOLIC PANEL (05/23/2025 8:03 AM EDT) [facility] Sodium 137 136 - 145 mmol/L 05/23/2025 8:25 AM EDT [facility] Potassium 3.8 3.5 - 5.0 mmol/L 05/23/2025 8:25 AM EDT [facility] Chloride 101 98 - 107 mmol/L 05/23/2025 8:25 AM EDT [facility] Total CO2 26 22 - 29 mmol/L 05/23/2025 8:25 AM EDT [facility] Anion Gap 10 7 - 16 mmol/L 05/23/2025 8:25 AM EDT [facility] Calcium 9.5 8.6 - 10.4 mg/dL 05/23/2025 8:25 AM EDT [facility] Glucose Lvl 96 70 - 99 mg/dL 05/23/2025 8:25 AM EDT [facility] BUN 16 6 - 20 mg/dL 05/23/2025 8:25 AM EDT [facility] Creatinine 1.20 0.67 - 1.30 mg/dL 05/23/2025 8:25 AM EDT [facility] eGFR (CKD-EPIcr 2020) 77 >=60 mL/min/1.7 3 m2 05/23/2025 8:25 AM EDT [facility] Comment:Estimated GFR was ca lculated using the CKD-EPIcr (2020) equation refit without race. The equation is recommended by the National Kidney Foundation - [place] Society of Nephrology Task Force. Blood VENOUS BLOOD / Unknown Venipuncture / Unknown 05/23/2025 8:03 AM EDT 05/23/2025 8:06 AM EDT us Pranav Theodore MD CHEMISTRY ORDERABLES Final Re sult [facility] [address] [place] [id number] * CBC (05/23/2025 8:03 AM EDT) WBC 6.9 3.7 - 10.3 x10(3)/mcL 05/23/2025 8:09 AM EDT [facility] RBC 5.18 4.60 - 6.10 x10(6)/mcL 05/23/2025 8:09 AM EDT [facility] Hgb 15.6 13.7 - 17.5 g/dL 05/23/2025 8:09 AM EDT [facility] Hct 46.2 40.0 - 51.0 % 05/23/2025 8:09 AM EDT [facility] MCV 89.2 80.0 - 100.0 fL 05/23/2025 8:09 AM EDT [facility] MCH 30.1 26.0 - 34.0 pg 05/23/2025 8:09 AM EDT [facility] MCHC 33.8 30.7 - 35.5 g/dL 05/23/2025 8:09 AM EDT [facility] RDW 12.1 <=14.9 % 05/23/2025 8:09 AM EDT [facility] Platelet 327 155 - 369 x10(3)/mcL 05/23/2025 8:09 AM EDT [facility] MPV 9.2 8.8 - 12.5 fL 05/23/2025 8:09 AM EDT [facility] Blood VENOUS BLOOD / Unknown Venipuncture / Unknown 05/23/2025 8:03 AM EDT 05/23/2025 8:06 AM EDT us Pranav Theodore MD HEMATOLOGY ORDERABLES Final R esult [place] [id number] * XR CHEST AP PORTABLE (05/23/2025 7:51 AM EDT) Anatomical Region Laterality Modality Chest Radiographic Fara ging 05/23/2025 7:51 AM EDT Impressions 05/23/2025 7:53 AM EDT No acute finding. - Note: Radiology results need to be interpreted within a comprehensive clinical context. If you have questions about the radiology report, please contact the office of the ordering clinician. Narrative 05/23/2025 7:53 AM EDT XR CHEST AP PORTABLE, 05/23/2025 7:51 AM CLINICAL HISTORY: Chest pain and shortness of breath COMPARISON: 09/12/2018 PROCEDURE COMMENTS: AP portable technique. FINDINGS: Support devices: No visible support devices. Heart and mediastinal contours within normal limits for technique. No active failure, pneumonia, or visible effusion. No visible pneumothorax. Procedure Note Keegan Cedeno MD - 05/23/2025 XR CHEST AP PORTABLE, 05/23/2025 7:51 AM CLINICAL HISTORY: Chest pain and shortness of breath COMPARISON: 09/12/2018 PROCEDURE COMMENTS: AP portable technique. FINDINGS: Support devices: No visible support devices. Heart and mediastinal contours within normal limits for technique. Noactive failure, pneumonia, or visible effusion. No visible pneumothorax. IMPRESSION: No acute finding. - Note: Radiology results need to be interpreted within a comprehensiveclinical context. If you have questions about the radiology report, please contactthe office of the ordering clinician. Pranav Theodore MD IMG DIAGNOSTIC IMAGING ORDERA BLES Final Result * EK EKG 12 LEAD (05/23/2025 6:44 AM EDT) Anatomical Region Laterality Modality Electrocardiogra phy 05/23/2025 7:02 AM EDT Impressions 05/23/2025 8:31 AM EDT [facility] Test Date: 2025-05-23 Pat Name: DARRELL MCLEOD Department: DEPID Room: 41 Gender: Male Parker: : 1980 Requested By: [employer] [facility] Order Number: [id number] Reading MD: Uday Lares MD Measurements Intervals [place] Rate: 58 P: 13 NH: 131 QRS: 38 QRSD: 100 T: 54 QT: 417 QTc: 410 Interpretive Statements SINUS BRADYCARDIA VOLTAGE CRITERIA FOR LVH Electronically Signed On 05-23-2025 08:31:39 EDT by Udya Lares MD Narrative Procedure Note Uday Lares MD - 05/23/2025 IMPRESSION [facility] Test Date: 2025-05-23 Pat Name: DARRELL SORTO Department: DEPID Room: 41 Gender: Male Parker: : 1980 Requested By: [facility] Order Number: [id number] Reading MD: Uday Lares MD Measurements Intervals [place] Rate: 58 P: 13 NH: 131 QRS: 38 QRSD: 100 T: 54 QT: 417 QTc: 410 Interpretive Statements SINUS BRADYCARDIA VOLTAGE CRITERIA FOR LVH Electronically Signed On 05-23-2025 08:31:39 EDT by Uday Lares MD Pranav Theodore MD IMG ECG ORDERABLES Final Resu lt documented in this encounter Visit Diagnoses Diagnosis Syncope and collapse- Primary Syncope and collapse Chest pain, unspecified type Other chest pain Shortness of breath Primary hypertension Unspecified essential hypertension Pure hypercholesterolemia documented in this encounter Admitting Diagnoses Diagnosis Syncope and collapse documented in this encounter Administered Medications Inactive Administered Medications - up to 1 most recent administrations Medication Order MAR Action Action Date Dose Rate Site diazePAM (VALIUM) tablet 5 mg 5 mg, Oral, ONCE PRN, 1 dose, Starting on Sasha 05/23/25 at 1158, Until Sasha 05/23/25 at 1232, Anxiety, May give if patient anxious or claustrophobic, Pre-procedure(IR) Given 05/23/2025 12:32 PM EDT 5 mg iopamidoL (ISOVUE-370) 370 mg iodine /mL (76 %) injection (LOW) 75 mL 75 mL, Intravenous, ONCE PRN, 1 dose, Starting on Tue05/23/25 at 0919, Until Tue05/23/25 at 0920, Radiography/Imaging, Radiology Procedure, VESICANT , CT (Contrasts) Given 05/23/2025 9:20 AM EDT 75 mL iopamidoL (ISOVUE-370) 370 mg iodine /mL (76 %) injection (LOW) 75 mL 75 mL, Intravenous, ONCE PRN, 1 dose, Starting on Sasha 05/23/25 at 1227, Until Sasha 05/23/25 at 1320, Radiography/Imaging, Radiology Procedure, VESICANT Given 05/23/2025 1:20 PM EDT 75 mL metoprolol (LOPRESSOR) injection 5 mg 5 mg, Intravenous, EVERY 5 MIN PRN, 3 doses, Starting on Sasha 05/23/25 at 1158, Until Tue05/24/25 at 1932, HR is 65 or greater in Radiology and systolic B/P is 100 or greater, After patient in Radiology and has completed PO metoprolol regiment, give metoprolol (LOPRESSOR) injection every 5 minutes for up to a total of 3 doses if HR is 65 or greater and systolic B/P above or equal to 100., Is this for High Blood pressure? No ondansetron (ZOFRAN) injection 4 mg 4 mg, Intravenous, EVERY 4 HOURS PRN, Starting on Tue05/23/25 at 1329, Until Tue05/24/25 at 1932, Nausea ondansetron (ZOFRAN) tablet 4 mg 4 mg, Oral, EVERY 4 HOURS PRN, Starting on Tue05/23/25 at 1329, Until Tue05/24/25 at 1932, Nausea pantoprazole (PROTONIX) 40 mg in sodium chloride 0.9% 10 mL injection 40 mg, Intravenous, DAILY, First dose on Tue05/23/25 at 1330, Until Discontinued, Administer IV Push if patient cannot swallow pantoprazole tablets pantoprazole (PROTONIX) tablet 40 mg 40 mg, Oral, DAILY, First dose on Tue05/23/25 at 1330, Until Discontinued, Do not crush or chew Given 05/24/2025 9:18 AM EDT 40 mg sodium chloride 0.9% IV line flush 50 mL 50 mL, Intravenous, at 150-600 mL/hr, PRN, Starting on Tue05/23/25 at 0644, Until Tue05/24/25 at 1932, Line Care, Flush with a minimum of 20 mL after IVPB to insure complete administration of the dose. May use the saline infusion to back flush IVPB tubing as needed., Use this order to document priming and flushing IV line after medication administration. sodium chloride 0.9% syringe 10 mL 10 mL, Intravenous, ONCE PRN, 1 dose, Starting on Tue05/23/25 at 0919, Until Tue05/23/25 at 0920, Line Care, Flush peripheral lines every 12 hours, central lines every 8 hours, and after IV medication, CT (Contrasts) Given 05/23/2025 9:20 AM EDT 10 mL sodium chloride 0.9% syringe 10 mL 10 mL, Intravenous, ONCE PRN, 1 dose, Starting on Tue05/23/25 at 1227, Until Tue05/23/25 at 1315, Line Care, Flush peripheral lines every 12 hours, central lines every 8 hours, and after IV medication Given 05/23/2025 1:15 PM EDT 10 mL sodium chloride 0.9% syringe 100 mL 100 mL, Intravenous, ONCE PRN, 1 dose, Starting on Sasha 05/23/25 at 1227, Until Sasha 05/23/25 at 1320, Line Care, Use for drug dilution, Flush peripheral lines every 12 hours, central lines every 8 hours, and after IV medication Given 05/23/2025 1:20 PM EDT 100 mL sodium chloride 0.9% syringe 5 mL 5 mL, Intravenous, PRN, Starting on Sasha 05/23/25 at 0644, Until Tue05/24/25 at 1932, Line Care, Flush with 5 mL saline pre/post IVP, and 5 mL prior to IVPB or blood product administration. 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 Stop Taking at Discharge 07/25/2017 05/24/2025 naproxen (NAPROSYN) 500 mg Oral Tablet Take 1 Tab by mouth every 12 hours as needed for Pain for up to 14 doses. Stop Taking at Discharge 09/12/2018 05/24/2025 cyclobenzaprine (FLEXERIL) 10 mg Oral Tablet Take 0.5 Tabs by mouth 3 times daily as needed for Muscle spasms (Pain) for up to 14 doses. Stop Taking at Discharge 09/12/2018 05/24/2025 documented as of this encounter Active and Recently Administered Medications Times are shown in EDT. Scheduled Medication Order 05/22/2025 05/23/2025 05/24/2025 pantoprazole (PROTONIX) 40 mg in sodium chloride 0.9% 10 mL injection(Linked Group 1) 40 mg, Intravenous, DAILY, First dose on Sasha 05/23/25 at 1330, Until Discontinued, Administer IV Push if patient cannot swallow pantoprazole tablets 1504 (See Alternative - Provider: Delia Caceres RN) 0918 (See Alternative - Provider: LAUREN Welch III) pantoprazole (PROTONIX) tablet 40 mg(Linked Group 1) 40 mg, Oral, DAILY, First dose on Sasha 05/23/25 at 1330, Until Discontinued, Do not crush or chew 1504 (Given - Provider: Delia Caceres RN) 0918 (Given - Provider: LAUREN Welch III) PRN Medication Order 05/22/2025 05/23/2025 05/24/2025 acetaminophen (TYLENOL) tablet 650 mg 650 mg, Oral, EVERY 4 HOURS PRN, Starting on Sasha 05/23/25 at 1329, Until Tue05/24/25 at 1932, Pain, Fever, Maximum adult dose of acetaminophen is 4000 mg from all sources in 24 hours. diazePAM (VALIUM) tablet 5 mg (COMPLETED) 5 mg, Oral, ONCE PRN, 1 dose, Starting on Sasha 05/23/25 at 1158, Until Sasha 05/23/25 at 1232, Anxiety, May give if patient anxious or claustrophobic, Pre-procedure(IR) 1232 (Given - Provider: Barbara Miranda RN) iopamidoL (ISOVUE-370) 370 mg iodine /mL (76 %) injection (LOW) 75 mL (COMPLETED) 75 mL, Intravenous, ONCE PRN, 1 dose, Starting on Sasha 05/23/25 at 0919, Until Sahsa 05/23/25 at 0920, Radiography/Imaging, Radiology Procedure, VESICANT , CT (Contrasts) 0920 (Given - Provider: Josiane Anthony, RT) iopamidoL (ISOVUE-370) 370 mg iodine /mL (76 %) injection (LOW) 75 mL (COMPLETED) 75 mL, Intravenous, ONCE PRN, 1 dose, Starting on Sasha 05/23/25 at 1227, Until Sasha 05/23/25 at 1320, Radiography/Imaging, Radiology Procedure, VESICANT 1320 (Given - Provider: Serina Mcknight, RT) melatonin tablet 5-10 mg 5-10 mg, Oral, NIGHTLY PRN, Starting on Tue05/23/25 at 1329, Until Tue05/24/25 at 1932, Sleep, Begin with lowest dose unless otherwise directed. Reassess patient in 30 minutes. If necessary, remainder of dose may be given to patient. metoprolol (LOPRESSOR) injection 5 mg 5 mg, Intravenous, EVERY 5 MIN PRN, 3 doses, Starting on Tue05/23/25 at 1158, Until Tue05/24/25 at 1932, HR is 65 or greater in Radiology and systolic B/P is 100 or greater, After patient in Radiology and has completed PO metoprolol regiment, give metoprolol (LOPRESSOR) injection every 5 minutes for up to a total of 3 doses if HR is 65 or greater and systolic B/P above or equal to 100., Is this for High Blood pressure? No ondansetron (ZOFRAN) injection 4 mg(Linked Group 2) 4 mg, Intravenous, EVERY 4 HOURS PRN, Starting on Tue05/23/25 at 1329, Until Tue05/24/25 at 1932, Nausea ondansetron (ZOFRAN) tablet 4 mg(Linked Group 2) 4 mg, Oral, EVERY 4 HOURS PRN, Starting on Tue05/23/25 at 1329, Until Tue05/24/25 at 1932, Nausea polyethylene glycol (GLYCOLAX, MIRALAX) packet 17 g 17 g, Oral, 2 TIMES DAILY PRN, Starting on Tue05/23/25 at 1329, Until Tue05/24/25 at 1932, Constipation, If multiple oral PRN laxatives/stool softeners ordered, may give per patient preference. sodium chloride 0.9% IV line flush 50 mL 50 mL, Intravenous, at 150-600 mL/hr, PRN, Starting on Tue05/23/25 at 0644, Until Tue05/24/25 at 1932, Line Care, Flush with a minimum of 20 mL after IVPB to insure complete administration of the dose. May use the saline infusion to back flush IVPB tubing as needed., Use this order to document priming and flushing IV line after medication administration. sodium chloride 0.9% syringe 10 mL (COMPLETED) 10 mL, Intravenous, ONCE PRN, 1 dose, Starting on Tue05/23/25 at 0919, Until Tue05/23/25 at 0920, Line Care, Flush peripheral lines every 12 hours, central lines every 8 hours, and after IV medication, CT (Contrasts) 0920 (Given - Provider: Josiane Anthony, RT) sodium chloride 0.9% syringe 10 mL (COMPLETED) 10 mL, Intravenous, ONCE PRN, 1 dose, Starting on Sasha 05/23/25 at 1227, Until Sasha 05/23/25 at 1315, Line Care, Flush peripheral lines every 12 hours, central lines every 8 hours, and after IV medication 1315 (Given - Provider: Serina Mcknight, RT) sodium chloride 0.9% syringe 100 mL (COMPLETED) 100 mL, Intravenous, ONCE PRN, 1 dose, Starting on Sasha 05/23/25 at 1227, Until Sasha 05/23/25 at 1320, Line Care, Use for drug dilution, Flush peripheral lines every 12 hours, central lines every 8 hours, and after IV medication 1320 (Given - Provider: Serina Mcknight, RT) sodium chloride 0.9% syringe 5 mL 5 mL, Intravenous, PRN, Starting on Tue05/23/25 at 0644, Until Tue05/24/25 at 1932, Line Care, Flush with 5 mL saline pre/post IVP, and 5 mL prior to IVPB or blood product administration. Protocol for PERIPHERAL IV saline lock maintenance, flush with 3-5 mL saline syringe every 8 hours., Flush peripheral lines every 12 hours, central lines every 8 hours, and after IV medication Linked Groups Order Group 1: pantoprazole (PROTONIX) 40 mg in sodium chloride 0.9% 10 mL injectionJump to med 40 mg, Intravenous, DAILY, First dose on Sasha 05/23/25 at 1330, Until Discontinued, Administer IV Push if patient cannot swallow pantoprazole tablets Or pantoprazole (PROTONIX) tablet 40 mgJump to med 40 mg, Oral, DAILY, First dose on Sasha 05/23/25 at 1330, Until Discontinued, Do not crush or chew Group 2: ondansetron (ZOFRAN) tablet 4 mgJump to med 4 mg, Oral, EVERY 4 HOURS PRN, Starting on Sasha 05/23/25 at 1329, Until Tue05/24/25 at 1932, Nausea Or ondansetron (ZOFRAN) injection 4 mgJump to med 4 mg, Intravenous, EVERY 4 HOURS PRN, Starting on Sasha 05/23/25 at 1329, Until 05/24/25 at 1932, Nausea documented in this encounter Orders Medications Ordered That Thor ht Not Have Been Administered Count Last Ordered Date First Ordered Date acetaminophen (TYLENOL) tablet 650 mg 1 08/2025 melatonin tablet 5-10 mg 1 05/23/2025 metoprolol (LOPRESSOR) injection 5 mg 1 08/2025 metoprolol (LOPRESSOR) tablet 100 mg 05/14 metoprolol (LOPRESSOR) tablet 50 mg 05/23 nitroGLYCERIN (NITROSTAT) SL tablet 0.4-0.8 mg 1 05/23/2025 ondansetron (ZOFRAN) injection 4 mg 05/23 ondansetron (ZOFRAN) tablet 4 mg 1 05/23/20 pantoprazole (PROTONIX) 40 m g in sodium chloride 0.9% 10 mL injection 05/23/2025 polyethylene glycol (GLYCOLA X, MIRALAX) packet 17 g 05/23/2025 sodium chloride 0.9% IV line flush 50 mL 05/23/2025 sodium chloride 0.9% syringe 5 mL 1 025 Consult Count Last Ordered Date First Orde red Date IP CONSULT TO CARDIOLOGY 1 05/23/2025 IV Count Last Ordered Date First Orde red Date SALINE LOCK IV 05/23/2025 Admission Count Last Ordered Date First Orde red Date ADMIT 1 05/23/2025 Discharge Count Last Ordered Date First Orde red Date DISCHARGE PATIENT 1 05/24/2025 documented in this encounter Care Teams Storekeeper Helper Relationship Specialty Start Date End Date No Pcp, Per Patient PCP - General 05/23/25 documented as of this encounter
--- OUTSIDE RECORDS SUMMARY | 2025-06-19 14:16 | XMS_ITS | Encounter Summary ---
Author Organization [place] [address] Care Team Providers Care Engine Wiper Name Role Phone No Pcp, Per Patient Primary Care Provider Rudy chavez Encounter Details Date Type Department Care Team (Latest Contact Info) Description 06/19/2025 2:16 PM EDT - 06/19/2025 11:59 PM EDT Hospital Encounter [facility]G PFT LAB [facility] [place] [address] Discharge Disposition: Home or Self Care Social History Tobacco Use Types Packs/Day Years Used Date Smoking Tobacco: Never Smokeless Tobacco: Never Alcohol Use Standard Drinks/Week Comments Not Currently 0 (1 standard drink = 0.6 oz pur e alcohol) 12 beers a week [facility] Utilities Answer Date Recorded In the past 12 months has [employer] electric, gas, oil, or water [employer] threatened to shut off services in your home? No 05/23/2025 Overall Financial Resource Strain (CARDIA) Answe r Date Recorded How hard is it for you to pa y for the very basics like food, housing, medical care, and heating? Not hard at all 05/23/2025 PHQ-2 Answer Date Recorded PHQ-2 Total Score 0 05/23/2025 [facility] [place] of Occupat ional Health - Occupational Stress [...] money to get more. Never true 05/23/2025 [facility] IP Transportation Answer D ate Recorded In [...] on file documented as of this encounter Discharge Disposition Disposition Code Departure Means Destination Home or Self Care documented in this encounter Plan of Treatment Not on file documented as of this encounter Goals Goal Patient Goal Type Associated Problems Recent Progress Patient-Stated? Author Maintain a healthy diet, exercise regularly and maintain an ideal body weight General No Tina Moreno, OMAYRA documented as of this encounter Procedures Procedure Name Priority Date/Time Associated Diagnosis Comments PULMONARY FUNCTION TEST Routine 06/19/2025 2:18 PM EDT documented in this encounter Results * PULMONARY FUNCTION TEST (06/19/2025 2:18 PM EDT) FVC_PRE 5.70 4.23 - 6.82 L 06/23/2025 5:[address] [facility] FEV1_PRE 4.61 3.36 - 5.40 L 06/23/2025 5:[address] [facility] FEV1/FVC_PRE 80.84 69.24 - 88.39 % 06/23/2025 5:[address] [facility] Hb_PRE 15.60 g(Hb)/dL 06/23/2025 5:[address] [facility] ERV_PRE 1.82 0.80 - 3.22 L 06/23/2025 5:[address] [facility] RV_PRE 1.89 1.06 - 2.88 L 06/23/2025 5:[address] [facility] RV%TLC_PRE 24.73 14.28 - 32.43 % 06/23/2025 5:[address] [facility] TLC_PRE 7.64 6.51 - 9.60 L 06/23/2025 5:[address] [facility] FVC_Pre%REF 103 % 06/23/2025 5:[address] [facility] FEV1_Pre%REF 105 % 06/23/2025 5:[address] [facility] RV_Pre%REF 100 % 06/23/2025 5:[address] [facility] TLC_Pre%REF 95 % 06/23/2025 5:[address] [facility] ERV_Pre%REF 99 % 06/23/2025 5:[address] [facility] 06/19/2025 2:[address] [facility] - 06/23/2025 5:46 PM EDT Normal lung function Inspiratory loop flattening noted on flow volume loop. Pattern can be seen in extrathoracic airway compression. Recommend further evaluation if clinically indicated. Please correlate clinically. us Mariana Kumar DRESSMAKER OR TAILOR PFT ORDERABLES Final Result [facility] [address] [place] [address] documented in this encounter Visit Diagnoses Not on filedocumented in this encounter Care Teams Engine Wiper Relationship Specialty Start Date End Date No Pcp, Per Patient PCP - General 05/23/25 documented as of this encounter
[2025-07-10 16:50] LABS: Hematocrit 47.0 % (42.0-52.0); Hemoglobin 15.6 g/dL (14.1-18.0); Immature Granulocytes % 0.2 %; Mean Corpuscular HGB Conc 33.2 g/dL (31.8-35.4); Mean Corpuscular Hemoglobin 29.9 pg (27.0-31.2); Mean Corpuscular Volume 90.2 fl (80-94); Nucleated Red Blood Cells % 0 %; Platelet Count 387 K/mm3 (142-424); Red Blood Count 5.21 M/mm3 (4.60-6.20); Red Cell Distribution Width-SD 41.1 fL; White Blood Count 6.5 K/mm3 (4.8-10.8)
[2025-07-10 18:28] LABS: Albumin Level 4.6 g/dl (3.5-5.0); Chloride 105 mmol/L (98-107); Potassium 4.6 mmoL/L (3.5-5.1); Sodium 138 mmol/L (136-145)
[2025-07-10 18:31] LABS: Alanine Aminotransferase 20 U/L (12-78); Albumin/Globulin Ratio 1.6 (1.1-1.8); Alkaline Phosphatase 91 U/L (38-126); Anion Gap 11.6 mEq/L (5-15); Aspartate Amino Transferase 26 U/L (17-59); Bilirubin,Total 0.4 mg/dl (0.2-1.3); Blood Urea Nitrogen 14 mg/dl (9-20); Carbon Dioxide 26 mmol/L (22.0-30.0); Creatinine,Serum 1.10 mg/dl (0.66-1.25); Estimated Glomerular Filt Rate 73 ml/min (>60); GFR (African American) 88 ML/MIN (>60); Globulin 2.8 g/dL (1.3-3.2); Total Protein,Serum 7.4 g/dl (6.3-8.2)
[2025-07-10 18:32] LABS: Calcium 9.6 mg/dl (8.4-10.2); Glucose 91 mg/dl (74-100)
--- OUTSIDE RECORDS SUMMARY | 2025-07-11 11:45 | XMS_ITS | Encounter Summary ---
Author Organization [place] [address] Care Team Providers Care Examination Proctor Name Role Phone No Pcp, Per Patient Primary Care Provider Unavai labjj Reason for Visit * Reason Comments Follow-up Encounter Details Date Type Department Care Team (Late st Contact Info) Description 07/11/2025 11:45 AM EDT [place] [address] Ortiz Mckeon MD [address] [place] [address] Primary hypertension (Primary Dx); Syncope, vasovagal; Ventricular tachycardia (HCC) Social History Tobacco Use Types Packs/Day Years Used Date Smoking Tobacco: Never Smokeless Tobacco: Never Tobacco Cessation:Counseling Given: Not Answered Alcohol Use Standard Drinks/Week Comments Not Currently 0 (1 standard drink = 0.6 oz pur e alcohol) 12 beers a week [facility] Utilities Answer Date Recorded In the past 12 months has [employer], gas, oil, or water [employer] threatened to shut off services in your home? No 05/23/2025 Overall Financial Resource Strain (CARDIA) Answe r Date Recorded How hard is it for you to pa y for the very basics like food, housing, medical care, and heating? Not hard at all 05/23/2025 PHQ-2 Answer Date Recorded PHQ-2 Total Score 0 05/23/2025 [facility] [place] of Occupat ional Health - Occupational Stress [...] money to get more. Never true 05/23/2025 [facility] IP Transportation Answer D ate Recorded In [...] Sign Reading Time Taken Comments Blood Pressure 100/72 07/11/2025 11:39 AM EDT Pulse 61 07/11/2025 11:39 AM EDT Temperature - - Respiratory Rate - - Oxygen Saturation 99% 07/11/2025 11:39 AM EDT Inhaled Oxygen Concentration - - Weight 83 kg (183 lb) 07/11/2025 11:39 AM EDT Height 185.4 cm (6' 1 ) 07/11/2025 11:39 AM EDT Body Mass Index 24.14 07/11/2025 11:39 AM EDT documented in this encounter Progress Notes * Ortiz Mckeon MD - 07/11/2025 11:45 AM EDTAssociated Problem(s): Primary hypertension * Ortiz Mckeon MD - 07/11/2025 11:45 AM EDT Subjective: Patient ID: Rosas Alegre is a 45 y.o. male. Chief Complaint Patient presents with Follow-up Mr. 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 Was 130/60 None Their chronic cardiac conditions are: Problem List Cardiology Problems Other chest pain Primary hypertension Pure hypercholesterolemia Social History Tobacco Use Smoking Status Never Smokeless Tobacco Never Current Outpatient Medications Medication Sig Dispense Refill lisinopriL (PRINIVIL;ZESTRIL) 5 mg Oral Tablet Take 5 mg by mouth daily. No current facility-administered medications for this visit. Patients past medical, family and social histories were reviewed and updated. There were no changesexcept as noted. Review of Systems Constitutional: Negative for weight loss. Cardiovascular: Negative for chest pain, dyspnea on exertion, irregular heartbeat, leg swelling, near-syncope and palpitations. All other systems reviewed and are negative. Objective: Patient Vitals for the past 24 hrs: Pulse BP 07/11/25 1139 61 100/72 Body mass index is 24.14 kg/m??. Physical Exam Constitutional: He appears healthy. HENT: Nose: No nasal discharge. Eyes: Conjunctivae are normal. Neck: No JVD present. Cardiovascular: Normal rate, regular rhythm, S1 normal, S2 normal and normal heart sounds. Exam reveals no S3. No murmur heard. Pulmonary/Chest: Breath sounds normal. He has no wheezes. He has no rales. Abdominal: He exhibits no distension. Musculoskeletal: General: No edema. Neurological: He is alert. Skin: Skin is warm. No pallor. Relevant Studies No results found for this visit on 07/11/25. Lab Review Lab Results Component Value Date WBC 6.9 05/23/2025 HGB 15.6 05/23/2025 PLT 327 05/23/2025 Lab Results Component Value Date NA 137 05/23/2025 K 3.8 05/23/2025 BUN 16 05/23/2025 CREATININE 1.20 05/23/2025 GLU 96 05/23/2025 No results found for: TSH Lab Results Component Value Date CHOLESTEROL 175 05/23/2025 HDL 55 05/23/2025 LDLCALC 109 (H) 05/23/2025 TRIG 54 05/23/2025 No results found for: INR , PROTIME Assessment & Plan Primary hypertension Syncope, vasovagal Ventricular tachycardia (HCC) 1. Chest pain episode- resolved coronary CTA normal 2. HTN continue lisinopril 5 mg daily 3. 7 beat non sustained VT- no symptoms associated, auto trigger. 4. Vasovagal syncope - recurrent - occurred in setting of heavy alcohol use.- no recurrence. Ef normal Ecg with NER NSR Fu prn We discussed symptoms of VT that would necessitate urgent fu documented in this encounter Plan of Treatment Not on file documented as of this encounter Goals Goal Patient Goal Type Associated Problems Recent Progress Patient-Stated? Author Maintain a healthy diet, exercise regularly and maintain an ideal body weight General No Tina Moreno RMA documented as of this encounter Visit Diagnoses Diagnosis Primary hypertension- Primary Unspecified essential hypertension Syncope, vasovagal Syncope and collapse Ventricular tachycardia (HCC) Paroxysmal ventricular tachycardia documented in this encounter Historical Medications * This list may reflect changes made after this encounter. lisinopriL (PRINIVIL;ZESTRIL) 5 mg Oral Tablet Take 5 mg by mouth daily. added in this encounter Care Teams Examination Proctor Relationship Specialty Start Date End Date No Pcp, Per Patient PCP - General 05/23/25 documented as of this encounter
--- OUTSIDE RECORDS SUMMARY | 2025-07-11 12:38 | XMS_ITS | Clinical Summary ---
[facility] Address [address] [place] [id number] Care Team Providers Care Radiographer Angiogram Name Role Phone Mariana Kumar BRENDA Primary Care Provider [phone] Social History Tobacco Use Types Packs/Day Years Used Date Smoking Tobacco: Never Assessed Sex and Gender Information Value Date Recorded Sex Assigned at Not on file Legal Sex Male 11:41 AM EDT Gender Identity Not on file Sexual Orientation Not on file Plan of Treatment Upcoming Encounters Date Type Department Care Team (Late st Contact Info) Description 08/16/2025 9:30 AM EDT Office Visit [facility] [address] [place] [address] 08/16/2025 10:15 AM EDT Office Visit [facility] [address] [place] [address] Alvaro Foote MD [address] [place] [address] Health Maintenance Due Date Last Done Comments ANNUAL PHYSICAL 1982 HEPATITIS C SCREENING 1982 TDAP/TD VACCINES (1 - Tdap) 2001 COVID-19 Vaccine (2023-2 5 season) 2024 INFLUENZA VACCINE 08/14/2025 Pneumococcal Vaccine 0-49 Aged Out No longer eligible based on patient's age to complete this topic Insurance [facility] PPO Care Teams Radiographer Angiogram Relationship Specialty Start Date End Date Mariana Kumar, BRENDA [address] [place] [address] [place] [id number] PCP - General Nurse Practitioner 06/20/25
--- OUTSIDE RECORDS SUMMARY | 2025-07-11 12:38 | XMS_ITS | Encounter Summary ---
Author Organization [place] [address] Care Team Providers Care Tool Filer Name Role Phone No Pcp, Per Patient Primary Care Provider Rudy chavez Encounter Details Date Type Department Care Team (Late st Contact Info) Description 06/26/2025 Results Follow-Up [facility] [address] [place] [address] Roxanne August APRN [address] [place] [address] EV EVENT MONITOR Social History Tobacco Use Types Packs/Day Years Used Date Smoking Tobacco: Never Smokeless Tobacco: Never Alcohol Use Standard Drinks/Week Comments Not Currently 0 (1 standard drink = 0.6 oz pur e alcohol) 12 beers a week [facility] Utilities Answer Date Recorded In the past 12 months has e electric, gas, oil, or water company threatened to shut off services in your home? No 05/23/2025 Overall Financial Resource Strain (CARDIA) Answe r Date Recorded How hard is it for you to pa y for the very basics like food, housing, medical care, and heating? Not hard at all 05/23/2025 PHQ-2 Answer Date Recorded PHQ-2 Total Score 0 05/23/2025 [facility] [place] of Occupat ional Health - Occupational Stress [...] money to get more. Never true 05/23/2025 [facility] IP Transportation Answer D ate Recorded In [...] on file documented as of this encounter Plan of Treatment Not on file documented as of this encounter Goals Goal Patient Goal Type Associated Problems Recent Progress Patient-Stated? Author Maintain a healthy diet, exercise regularly and maintain an ideal body weight General No Tina Moreno RMA documented as of this encounter Visit Diagnoses Not on filedocumented in this encounter Care Teams Tool Filer Relationship Specialty Start Date End Date No Pcp, Per Patient PCP - General 05/23/25 documented as of this encounter
--- OUTSIDE RECORDS SUMMARY | 2025-07-11 12:38 | XMS_ITS | Encounter Summary ---
Author Organization [place] [address] Care Team Providers Care Wooden Fence Erector Name Role Phone No Pcp, Per Patient Primary Care Provider Rudy chavez Reason for Visit * Reason Onset Date Comments Hospital Follow Up 06/03/2025 Encounter Details Date Type Department Care Team (Late st Contact Info) Description 06/03/2025 Telephone [facility] [place] [address] [address] Ortiz Mckeon MD [address] [place] [address] Hospital Follow Up Social History Tobacco Use Types Packs/Day Years Used Date Smoking Tobacco: Never Smokeless Tobacco: Never Alcohol Use Standard Drinks/Week Comments Not Currently 0 (1 standard drink = 0.6 oz pur e alcohol) 12 beers a week [facility] Utilities Answer Date Recorded In the past 12 months has [employer] electric, gas, oil, or water company threatened to shut off services in your home? No 05/23/2025 Overall Financial Resource Strain (CARDIA) Answe r Date Recorded How hard is it for you to pa y for the very basics like food, housing, medical care, and heating? Not hard at all 05/23/2025 PHQ-2 Answer Date Recorded PHQ-2 Total Score 0 05/23/2025 [facility] of Occupat ional Health - Occupational Stress [...] money to get more. Never true 05/23/2025 [facility] IP Transportation Answer D ate Recorded In [...] on file documented as of this encounter Miscellaneous Notes * Telephone Encounter - Hansa Lopez CMA - 06/04/2025 3:58 PM EDT Called and SWP, provided information per BRENDA Lancaster and offered to schedule pt hfu appt for 06/13@ 11:45 AM. Pt preferred to schedule follow up after monitor results are received and scheduled for07/11/25 @ 11:45 AM. * Telephone Encounter - Hansa Lopez CMA - 06/04/2025 2:48 PM EDT Called pt to provide response per BRENDA Lancaster. No answer. HIPAA compliant VMLTCB * Telephone Encounter - Anisha Avelar APRN - 06/04/2025 2:34 PM EDT Would wear for 30 days if that's what Dr Lares ordered. Thanks! * Telephone Encounter - Hansa Lopez CMA - 06/03/2025 3:27 PM EDT Please advise on length of time pt needs to wear monitor. Pt was advised by Dr. Mckeon to wear for 2 weeks but was informed by Dr. Lares that next day to wear monitor for 30 days. * Telephone Encounter - Mansi Garza, Clerical Staff - 06/03/2025 3:21 PM EDT pt calling asking if he needs to wear his Heart monitor for a full [address] Mckeon said to wear it for two weeks. Dr Lares told him the next day to wear it for [address]. [address] Mckeon to make the call and he hopes its the 2 weeks. Pt will also need a hfu appt. Not seeing anything until Sept with the MEDICAL COMMUNICATION SPECIALIST Please call pt to clarify the monitor and to set up hfu appt. documented in this encounter Plan of Treatment Not on file documented as of this encounter Goals Goal Patient Goal Type Associated Problems Recent Progress Patient-Stated? Author Maintain a healthy diet, exercise regularly and maintain an ideal body weight General No Tina Moreno, OMAYRA documented as of this encounter Visit Diagnoses Not on filedocumented in this encounter Care Teams Wooden Fence Erector Relationship Specialty Start Date End Date No Pcp, Per Patient PCP - General 05/23/25 documented as of this encounter
--- OUTSIDE RECORDS SUMMARY | 2025-07-11 12:38 | XMS_ITS | Clinical Summary ---
Author Organization [facility] Address [address] [place] [address] Phone Care Team Providers Care High [employer] Combination Teacher Name Role Phone No Pcp, Per Patient Primary Care Provider Unavai lable Allergies No known active allergies Medications lisinopriL (PRINIVIL;ZESTRI L) 5 mg Oral Tablet Take 5 mg by mouth daily. Active Active Problems Problem Noted Date Diagnosed Date Syncope and collapse 05/23/2025 Assessment & Plan (05/23/2025 1:34 PM EDT): Recurrent nature Echocardiogram ordered Cardiology consulted Continue telemetry Other chest pain 05/23/2025 Assessment & Plan (05/23/2025 1:34 PM EDT): Troponins negative CT coronary along with echocardiogram ordered Cardiology consulted Shortness of breath 05/23/2025 Assessment & Plan (05/23/2025 1:34 PM EDT): Chest x-ray with no acute issue CTPA with no acute pulmonary embolism Primary hypertension 05/23/2025 Assessment & Plan (07/11/2025 11:53 AM EDT): Assessment & Plan (05/23/2025 1:34 PM EDT): EKG with voltage criteria for LVH Blood pressure as high as 152/98 Monitor and may need to start medication in outpatient Pure hypercholesterolemia 05/23/2025 Assessment & Plan (05/23/2025 1:34 PM EDT): LDL slightly elevated at 109 Defer management to cardiology Encounters Date Type Department Care Team Description 07/11/2025 11:45 AM EDT Office Visit [facility] [address] Ortiz Mckeon MD Primary hypertension (Primary Dx); Syncope, vasovagal; Ventricular tachycardia (HCC) 06/26/2025 Results Follow-Up [facility] [address] Roxanne August APRN EV EVENT MONITOR 06/19/2025 2:16 PM EDT - 06/19/2025 11:59 PM EDT Hospital Encounter EDG PFT [facility] [address] [place] [address] Discharge Disposition: Home or Self Care 06/03/2025 Telephone [facility] [address] Ortiz Mckeon MD Hospital Follow Up 05/23/2025 7:18 AM EDT - 05/24/2025 3:27 PM EDT Hospital Encounter EDG 2A [facility] [address] [place] [address] Pranav Theodore MD Fry, Isaiah J, MD Syncope and collapse (Primary Dx); Chest pain, unspecified type Discharge Disposition: Home or Self Care from Last 3 Months Surgical History Surgery Date Site/Laterality Comments LEG SURGERY unknown right OTHER SURGICAL HISTORY unknown right fore arm ORTHOPEDIC SURGERY Social History Tobacco Use Types Packs/Day Years Used Date Smoking Tobacco: Never Smokeless Tobacco: Never Tobacco Cessation:Counseling Given: Not Answered Alcohol Use Standard Drinks/Week Comments Not Currently 0 (1 standard drink = 0.6 oz pur e alcohol) 12 beers a week [facility] Utilities Answer Date Recorded In the past 12 months has [employer] electric, gas, oil, or water company threatened to shut off services in your home? No 05/23/2025 Overall Financial Resource Strain (CARDIA) Answe r Date Recorded How hard is it for you to pa y for the very basics like food, housing, medical care, and heating? Not hard at all 05/23/2025 PHQ-2 Answer Date Recorded PHQ-2 Total Score 0 05/23/2025 [facility] [place] of Occupat ional Health - Occupational Stress [...] money to get more. Never true 05/23/2025 [facility] IP Transportation Answer D ate Recorded [...] on file Sexual Orientation Not on file Obstetrics History Last Filed Vital Signs Vital Sign Reading Time Taken Comments Blood Pressure 100/72 07/11/2025 11:39 AM EDT Pulse 61 07/11/2025 11:39 AM EDT Temperature 37.6 C (99.6 F) 05/24/2025 12:11 PM EDT Respiratory Rate 18 05/24/2025 12:11 PM EDT Oxygen Saturation 99% 07/11/2025 11:39 AM EDT Inhaled Oxygen Concentration - - Weight 83 kg (183 lb) 07/11/2025 11:39 AM EDT Height 185.4 cm (6' 1 ) 07/11/2025 11:39 AM EDT Body Mass Index 24.14 07/11/2025 11:39 AM EDT Plan of Treatment Health Maintenance Due Date Last Done Comments DTaP/TDaP/Td (5 - Tdap) 1993 05/27/19 [birth year], [birth year], Additional history exists Hepatitis B Vaccine (1 of 3 - 19+ 3-dose series) 2001 Annual Wellness Exam 08/29/2015 08/29/2014 (Declined ) COVID-19 Vaccine ( season) 2024 Influenza Vaccine (#1) 2025 Meningococcal B Vaccine Aged Out No l onger eligible based on patient's age to complete this topic Pneumococcal Vaccine 0-49 Aged Out No longer eligible based on patient's age to complete this topic Goals Goal Patient Goal Type Associated Problems Recent Progress Patient-Stated? Author Maintain a healthy diet, exercise regularly and maintain an ideal body weight General No Tina Moreno RMA Procedures Procedure Name Priority Date/Time Associated Diagnosis Comments PULMONARY FUNCTION TEST Routine 06/19/2025 2:18 PM EDT EV EVENT MONITOR Routine 05/24/2025 2:54 PM [...] 0 PCP: No Pcp, Per Patient Primary Bridge Painter Helper: none established as OP I would like [...] a constant nagging but intermittently gets worse. Healsurinder intermittently feels shooting pain in his heart [...] heart problems. His grandfather anduncles have h/o PR and PCIs. No previous ischemic evaluation or [...] History reviewed. No pertinent past medical history. WEIGHER AND CHARGER Medications: Prior to Admission medications Medication Sig [...] most recent cardiovascular imaging studies available in [facility] EMR werereviewed at time of [...] reports chest discomfort today - no medications WEIGHER AND CHARGER HTN - SBP 120s-140s - no medications WEIGHER AND CHARGER - avoid BB due to baseline bradycardia Plan: - CCTA ordered - ECHO ordered - Check lipid panel + A1c - EV monitor at time of DC - Further recommendations to follow testing Further input from Dr. Mike Nash APRN, [facility] [place] 05/23/25 Disposition Perspective - Medically Ready for [...] W/ REFLEX STAT 05/23/2025 8:03 AM EDT BASIC METABOLIC PANEL STAT 05/23/2025 8:03 AM EDT CBC STAT 05/23/2025 8:03 AM EDT XR CHEST AP PORTABLE XOCHITL 05/23/2025 7:51 AM EDT EK EKG 12 LEAD STAT 05/23/2025 6:44 AM EDT SALINE LOCK IV STAT 05/23/2025 6:44 AM EDT from Last 3 Months Results * PULMONARY FUNCTION TEST (06/19/2025 2:18 PM EDT) FVC_PRE 5.70 4.23 - 6.82 L 06/23/2025 5:46 PM EDT [facility] FEV1_PRE 4.61 3.36 - 5.40 L 06/23/2025 5:46 PM EDT [facility] FEV1/FVC_PRE 80.84 69.24 - 88.39 % 06/23/2025 5:46 PM EDT [facility] Hb_PRE 15.60 g(Hb)/dL 06/23/2025 5:46 PM EDT [facility] ERV_PRE 1.82 0.80 - 3.22 L 06/23/2025 5:46 PM EDT [facility] RV_PRE 1.89 1.06 - 2.88 L 06/23/2025 5:46 PM EDT [facility] RV%TLC_PRE 24.73 14.28 - 32.43 % 06/23/2025 5:46 PM EDT [facility] TLC_PRE 7.64 6.51 - 9.60 L 06/23/2025 5:46 PM EDT [facility] FVC_Pre%REF 103 % 06/23/2025 5:46 PM EDT [facility] FEV1_Pre%REF 105 % 06/23/2025 5:46 PM EDT [facility] RV_Pre%REF 100 % 06/23/2025 5:46 PM EDT [facility] TLC_Pre%REF 95 % 06/23/2025 5:46 PM EDT [facility] ERV_Pre%REF 99 % 06/23/2025 5:46 PM EDT [facility] 06/19/2025 2:18 PM EDT Impressions [facility] - 06/23/2025 5:46 PM EDT Normal lung function Inspiratory loop flattening noted on flow volume loop. Pattern can be seen in extrathoracic airway compression. Recommend further evaluation if clinically indicated. Please correlate clinically. us Mariana Kumar AQUACULTURE FARM MANAGER PFT ORDERABLES Final Result [facility] [address] [place] [id number] * EV EVENT MONITOR (05/24/2025 2:54 PM EDT) Anatomical Region Laterality Modality Holter/Event Mon itoring 06/24/2025 8:22 AM EDT Impressions 06/24/2025 12:[address] [facility] Test Date: 2025-06-24 Pat Name: DARRELL SORTO Department: DEPID Room: [facility] [place] Gender: Male Section Crews Activities Clerk: : 1980 Requested By: MEG COUGHLIN Order Number: [id number] Reading MD: Ortiz Mckeon MD Interpretive Statements [...] Pat Name: DARRELL SORTO Department: DEPID Room: [facility] [place] Gender: Male Section Crews Activities Clerk: : 1980 Requested By: MEG COUGHLIN Order Number: [id number] Reading MD: Ortiz Mckeon MD Interpretive Statements The patient's monitoring period was 05/24/2025 - 06/22/2025. Baseline sample showed Sinus Rhythm with a heart rate of 71.5 bpm. There were 0 critical, 0 serious, and 5 stable events that occurred. Sinus Rhythm Two runs of non sustained ventricular tachycardia. Electronically Signed On 06-24-2025 12:15:42 EDT by Ortiz Mckeon MD Meg Coughlin AQUACULTURE FARM MANAGER IMG HOLTER MONITOR ORDERABL ES Final Result [...] EKG 12 LEAD (05/23/2025 9:51 PM EDT) Only the most recent of2 resultswithin the time period is included. Anatomical Region Laterality Modality Electrocardiogra phy 05/23/2025 9:53 PM EDT Impressions 05/24/2025 7:58 AM EDT [facility] Test Date: 2025-05-23 Pat Name: DARRELL SORTO Department: DEPID Room: 2105 Gender: Male Section Crews Activities Clerk: Dangelo : 1980 Requested By: ASHLEY Zhang Order Number: [id number] Reading MD: Uday Lares MD Measurements Intervals [place] Rate: 59 P: 25 CT: 131 QRS: 38 QRSD: 98 T: 53 QT: 405 QTc: 402 Interpretive Statements Normal Sinus Rhythm LVH Electronically Signed On 05-24-2025 07:58:31 EDT by Uday Lares MD Narrative Procedure Note Uday Lares MD - 05/24/[address] [facility] Test Date: 2025-05-23 Pat Name: DARRELL SORTO Department: DEPID Room: 2105 Gender: Male Section Crews Activities Clerk: Dangelo : 1980 Requested By: ASHLEY Zhang Order Number: [id number] Reading MD: Uday Lares MD Measurements Intervals [place] Rate: 59 P: 25 CT: 131 QRS: 38 QRSD: 98 T: 53 QT: 405 QTc: 402 Interpretive Statements Normal Sinus Rhythm LVH Electronically Signed On 05-24-2025 07:58:31 EDT by Uday Lares MD us Ashley Perez MD IMG ECG ORDERABLES Final Result * ECG AND WAVEFORMS - TELEMETRY (05/23/2025 7:03 PM EDT) Only the most recent of2 resultswithin the time period is included. ECG INTERPRET NSR [facility] 05/23/2025 7:03 PM EDT Narrative [facility] - 05/23/2025 8:[address] 0.14 QRS 0.11 RR 1.03 QT 0.41 QTc 0.40 See Clinical Report link for waveform capture us Unknown Provider POINT OF CARE CARDIOLOGY Final Result [facility] [address] [place] [address] * CT ANGIOGRAM CORONARY W CONTRAST (05/23/2025 1:26 PM EDT) Anatomical Region Laterality Modality Chest Computed Tomogra phy 05/23/2025 1:26 PM EDT Impressions 05/23/2025 2:57 PM EDT Vessel-specific details above. CAD-RADS CLASSIFICATION: CAD-RADS 0. No demonstrated plaque or stenosis. CAD-RADS MODIFIERS: No relevant modifier. CAD-RADS (Coronary Artery Disease-Reporting and Data System) is endorsed by the British College of Cardiology. CAD-RADS grading is applied to vessels 1.5mm diameter and greater only. Link to source document. https://cdn.Appdra.com/scct.org/resource/resmgr/cad-rads/scct_jcct_cad-rads.pdf - Note: Radiology results need to be [...] done by the reviewing physician on a [employer] workstation, with one or more of the [...] if not contraindicated as recorded in EPIC. [id number] IV contrast given as recorded in EPIC. CCTA prospective ECG-gated techniquefor coronary artery visualization. Interactive 3-D postprocessing done bythe reviewing physician on a [employer] workstation, with one or more of thefollowing: [...] Disease-Reporting and Data System) is endorsedby the British College of Cardiology. CAD-RADS grading is applied to vessels1.5mm diameter and greater only. Link to source document. https://cdn.Appdra.com/scct.org/resource/resmgr/cad-rads/scct_jcct_cad-rads.pdf - Note: Radiology results need to be interpreted within a comprehensiveclinical context. If you have questions about the radiology report, please contactthe office of the ordering clinician. us Brenda Nash AQUACULTURE FARM MANAGER IMG CT ORDERABLES Final Res ult * (ABNORMAL) HEMOGLOBIN A1C (05/23/2025 11:14 AM EDT) Hgb A1C 5.7(H) 4.2 - 5.6 % 05/23/2025 12:33 PM EDT [facility] [employer] [facility] Est. Avg Glucose 117 mg/dL 05/23/2025 12:33 PM EDT [facility] [employer] Blood VENOUS BLOOD / Unknown Venipuncture / Unknown 05/23/2025 11:14 AM EDT 05/23/2025 11:16 AM EDT Narrative [facility] [employer] [facility] - 05/23/2025 12:33 PM EDT REFERENCE RANGE: Normal: 4.0-5.6% Pre-diabetes: 5.7-6.4% Provisional diagnosis of diabetes: >6.4% Hgb F>10% and anything which shortens red cell survival, such as hemolytic anemia, or unstable hemoglobin variants such as HbSS, HbSC, or HbCC, will lower the HbA1c value associated with a given level of glycemic control. Brenda Nash AQUACULTURE FARM MANAGER CHEMISTRY ORDERABLES Final Result [facility] [employer] [facility] [address] [facility] , [place] [address] * (ABNORMAL) LIPID SCREEN (05/23/2025 11:14 AM EDT) Pathologist [facility] Cholesterol 175 <200 mg/dL 05/23/2025 11:58 AM EDT [employer] Comment: < 200 Desirable 200 - 239 Borderline High >= 240 High Triglyceride 54 <150 mg/dL 05/23/2025 11:58 AM EDT [employer] Comment: < 150 Normal 150 - 199 Borderline High 200 - 499 High >= 500 Very High HDL 55 >=40 mg/dL 05/23/2025 11:58 AM EDT [employer] Comment: > 60 Optimal 40 - 60 Acceptable < 40 Low LDL Calculated 109(H) <100 mg/dL 05/23/2025 11:58 AM EDT [employer] Comment: < 100 Optimal 100 - 129 Near or above optimal 130 - 159 Borderline High 160 - 189 High >= 190 Very High The National Institutes of Health (NIH) equation is used for all lipid panels that report calculated LDL (LDL-C). Non-HDL-C Calculated 120 <=129 mg/dL 05/23/2025 11:58 AM EDT [employer] Comment: <130 Desirable 130-159 Above Desirable 160-189 Borderline High 190-219 High >= 220 Very High Fasting Specimen? Yes None 025 11:58 AM EDT [facility] [employer] [facility] Blood VENOUS BLOOD / Unknown Venipuncture / Unknown 05/23/2025 11:14 AM EDT 05/23/2025 11:16 AM EDT Brenda Nash APRN CHEMISTRY ORDERABLES Final Result Performing Organization Address City/[facility]/ZIP Co de Phone Number [facility] [employer] [facility] [address] [facility] [place] [id number] * TROPONIN-T HIGH SENSITIVITY 2HR (05/23/2025 10:18 AM EDT) ek-dRsdfiysr-M 2HR <6 <22 ng/L 05/23/2025 10:44 AM EDT [facility] hs-cTnT 2Hr Delta from Baseline 05/23/2025 10:44 AM EDT [facility] Comment:Unable to calculate, result is outside instrument's measuring range. Blood VENOUS BLOOD / Unknown Venipuncture / Unknown 05/23/2025 10:18 AM EDT 05/23/2025 10:26 AM EDT Narrative [facility] - 05/23/2025 10:44 AM EDT Ingestion of raven doses of biotin (>5 mg/day) taken within 8 hours of drawing blood sample can interfere with this immunoassay test. us Pranav Theodore MD CHEMISTRY ORDERABLES Final Re sult Performing Organization Address City/[facility]/ZIP Co de Phone Number [facility] [address] [place] [address] * CT ANGIOGRAM PULMONARY W CONTRAST [...] Isovue 370 IV contrast as recorded in [employer]. 2-D multiplanar reconstructions and 3-D MIP reconstructions [...] using Isovue 370 IVcontrast as recorded in [employer]. 2-D multiplanar reconstructions and 3-D MIP reconstructions [...] BASELINE W/ REFLEX (05/23/2025 8:03 AM EDT) [facility] xr-xYmcgvylf-H <6 <22 ng/L 05/23/2025 8:25 AM EDT [facility] Blood VENOUS BLOOD / Unknown Venipuncture / Unknown 05/23/2025 8:03 AM EDT 05/23/2025 8:06 AM EDT Narrative [facility] - 05/23/2025 8:25 AM EDT Ingestion of raven doses of biotin (>5 mg/day) taken within 8 hours of drawing blood sample can interfere with this immunoassay test. Pranav Theodore MD CHEMISTRY ORDERABLES Final Re sult [facility] [address] [place] [id number] * CBC (05/23/2025 8:03 AM EDT) [facility] WBC 6.9 3.7 - 10.3 x10(3)/mcL 05/23/2025 8:09 AM EDT [facility] RBC 5.18 4.60 - 6.10 x10(6)/mcL 05/23/2025 8:09 AM EDT [facility] Hgb 15.6 13.7 - 17.5 g/dL 05/23/2025 8:09 AM EDT [facility] Hct 46.2 40.0 - 51.0 % 05/23/2025 8:09 AM EDT [facility] MCV 89.2 80.0 - 100.0 fL 05/23/2025 8:09 AM EDT [facility] MCH 30.1 26.0 - 34.0 pg 05/23/2025 8:09 AM EDT [facility] MCHC 33.8 30.7 - 35.5 g/dL 05/23/2025 8:09 AM EDT [facility] RDW 12.1 <=14.9 % 05/23/2025 8:09 AM EDT [facility] Platelet 327 155 - 369 x10(3)/mcL 05/23/2025 8:09 AM EDT [facility] MPV 9.2 8.8 - 12.5 fL 05/23/2025 8:09 AM EDT [facility] Blood VENOUS BLOOD / Unknown Venipuncture / Unknown 05/23/2025 8:03 AM EDT 05/23/2025 8:06 AM EDT us Pranav Theodore MD HEMATOLOGY ORDERABLES Final R esult [facility] [address] [place] [address] * BASIC METABOLIC PANEL (05/23/2025 8:03 AM EDT) Sodium 137 136 - 145 mmol/L 05/23/2025 8:25 AM EDT [facility] Potassium 3.8 3.5 - 5.0 mmol/L 05/23/2025 8:25 AM EDT [facility] Chloride 101 98 - 107 mmol/L 05/23/2025 8:25 AM EDT [facility] Total CO2 26 22 - 29 mmol/L 05/23/2025 8:25 AM EDT [facility] Anion Gap 10 7 - 16 mmol/L 05/23/2025 8:25 AM EDT [facility] Calcium 9.5 8.6 - 10.4 mg/dL 05/23/2025 8:25 AM EDT [facility] Glucose Lvl 96 70 - 99 mg/dL 05/23/2025 8:25 AM EDT [facility] BUN 16 6 - 20 mg/dL 05/23/2025 8:25 AM EDT [facility] Creatinine 1.20 0.67 - 1.30 mg/dL 05/23/2025 8:25 AM EDT [facility] eGFR (CKD-EPIcr 2020) 77 >=60 mL/min/1.7 3 m2 05/23/2025 8:25 AM EDT [facility] Comment:Estimated GFR was ca lculated using the CKD-EPIcr (2020) equation refit without race. The equation is recommended by the National Kidney Foundation - British Society of Nephrology Task Force. Blood VENOUS BLOOD / Unknown Venipuncture / Unknown 05/23/2025 8:03 AM EDT 05/23/2025 8:06 AM EDT us Pranav Theodore MD CHEMISTRY ORDERABLES Final Re sult [facility] [address] [place] [id number] * XR CHEST AP PORTABLE (05/23/2025 7:51 [...] IMG DIAGNOSTIC IMAGING ORDERA BLES Final Result from Last 3 Months Insurance ANTHEM PPO ANTHEM PPO Advance Directives For more information, please contact: [phone] * Full Code (Latest Code Status on File) Date Activated Date Inactivated Comments 05/23/2025 1:29 PM 05/24/2025 7:37 PM Care Teams [employer] Combination Teacher Relationship Specialty Start Date End Date No Pcp, Per Patient PCP - General 05/23/25
--- OUTSIDE RECORDS SUMMARY | 2025-07-11 12:38 | XMS_ITS | Clinical Summary ---
Author Organization [facility] Address [facility] [place] [address] Care Team Providers Care Financial Coach Name Role Phone Timbo Marinelli MD Primary Care Provider [phone] Source Comments This information has been disclosed to you from confidential records protectedfrom disclosure by state law. You shall make no further disclosure of thisinformation without the specific, written, and informed release of theindividual to whom it pertains, or as otherwise permitted by law. A generalauthorization for the release of medical or other information is not sufficientfor the purposes of therelease of HIV test results or diagnoses. [id number] Social History Tobacco Use Types Packs/Day Years Used Date Smoking Tobacco: Never Assessed Sex and Gender Information Value Date Recorded Sex Assigned at Not on file Legal Sex Male 7:43 PM EST Gender Identity Not on file Sexual Orientation Not on file Plan of Treatment Not on file Care Teams Financial Coach Relationship Specialty Start Date End Date Timbo Marinelli MD [address] [place] [phone] PCP - General 07/20/07
== END 2025-07-10 23:59 | disposition home or self-care (01) ==
LOC: LAB.DROPOF 07-11 12:36
PROVIDERS: PCP Nurse Practitioner; Visit Provider Nurse Practitioner
DX: I10 Essential (primary) hypertension (principal)
CPT/HCPCS: 80053; 85025

== ENCOUNTER 2025-10-02 09:18 | Outpatient (CLI) | payer BC, SELFPAY ==
[2025-10-02 15:49] LABS: Lyme Ab IgM CIA ND
[2025-10-02 16:10] LABS: Hematocrit 45.0 % (42.0-52.0); Hemoglobin 15.0 g/dL (14.1-18.0); Immature Granulocytes % 0.4 %; Mean Corpuscular HGB Conc 33.3 g/dL (31.8-35.4); Mean Corpuscular Hemoglobin 29.8 pg (27.0-31.2); Mean Corpuscular Volume 89.5 fl (80-94); Nucleated Red Blood Cells % 0 %; Platelet Count 386 K/mm3 (142-424); Red Blood Count 5.03 M/mm3 (4.60-6.20); Red Cell Distribution Width-SD 40.5 fL; White Blood Count 5.6 K/mm3 (4.8-10.8)
[2025-10-02 16:59] LABS: Alanine Aminotransferase 19 U/L (12-78); Albumin Level 4.7 g/dl (3.5-5.0); Alkaline Phosphatase 100 U/L (38-126); Anion Gap 13.7 mEq/L (5-15); Aspartate Amino Transferase 25 U/L (17-59); Bilirubin,Total 0.6 mg/dl (0.2-1.3); Blood Urea Nitrogen 12 mg/dl (9-20); Calcium 9.9 mg/dl (8.4-10.2); Carbon Dioxide 22 mmol/L (22.0-30.0); Chloride 103 mmol/L (98-107); Creatinine,Serum 1.10 mg/dl (0.66-1.25); Estimated Glomerular Filt Rate 73 ml/min (>60); GFR (African American) 88 ML/MIN (>60); Glucose 75 mg/dl (74-100); Potassium 4.7 mmoL/L (3.5-5.1); Sodium 134 mmol/L (136-145); Uric Acid 4.6 mg/dl (3.5-8.5)
[2025-10-02 17:07] LABS: C-Reactive Protein 5.2 mg/L (0-4)
[2025-10-02 17:30] LABS: Thyroid Stimulating Hormone 0.54 uIU/mL (0.465-4.68)
[2025-10-02 18:18] LABS: Albumin/Globulin Ratio 1.5 (1.1-1.8); Globulin 3.2 g/dL (1.3-3.2); Total Protein,Serum 7.9 g/dl (6.3-8.2)
[2025-10-04 08:14] LABS: RA Latex Turbid. <10.0 IU/mL (<14.0)
[2025-10-04 14:12] LABS: Lyme Ab CIA Negative (Negative)
== END 2025-10-02 23:59 | disposition home or self-care (01) ==
LOC: LAB.DROPOF 10-03 09:24
PROVIDERS: PCP Nurse Practitioner; Visit Provider Nurse Practitioner
DX: M79.671 Pain in right foot (principal); I10 Essential (primary) hypertension; S90.869A Insect bite (nonvenomous), unspecified foot, initial encounter; W57.XXXA Bitten or stung by nonvenomous insect and other nonvenomous arthropods, initial encounter
CPT/HCPCS: 80053; 84443; 84550; 85025; 85651; 86038; 86140; 86431; 86618